=== PATIENT | female | born 1940 | race Caucasian/White ===

== ENCOUNTER → 2016-05-17 | Outpatient (CLI) | payer MEDICARE, BC ==
[~2016-05-17] MED LIST: ATR20T PO; CALC-52 PO; CHOL2000 PO; FEXO-104 PO; FLT05NA16 NSEACH; IBAN150T5 PO; NITR100C PO; PREMARIN; QVAR IH; TELM1TAB2 PO; UBID200C PO; VIT1CAPS29 PO; [UNRECOGNIZED DRUG - CODE] PO; [UNRECOGNIZED DRUG - OTHER]
--- NOTE | 2016-05-17 18:36 | Diagnostic Imaging Report ---
Bilateral diagnostic mammogram. INDICATION: Itching and tenderness in the outer aspect of the left breast. COMPARISON: 06/02/2015 The current study was also evaluated with a Computer Aided Detection (CAD) system. FINDINGS: There are scattered fibroglandular densities bilaterally with no significant change. No developing mass, architectural distortion or suspicious cluster of calcification. IMPRESSION: No mammographic evidence of malignancy. Ultrasound evaluation pending. ACR BI-RADS Category 0: Incomplete. (Needs additional imaging evaluation). Result letter will be mailed to the patient. Note: At least 10% of breast cancer is not imaged by mammography. Dictated by: Dictated on workstation # [id number]
--- NOTE | 2016-05-17 19:02 | Diagnostic Imaging Report ---
EXAMINATION: Left breast ultrasound. INDICATION: Lateral left breast tenderness and itching. FINDINGS: Areas of symptoms were scanned around the lateral aspect of the left breast with no underlying abnormality seen. IMPRESSION: Negative study. Clinical followup of patient's symptoms recommended. ACR BI-RADS Category 1: Negative. Dictated by: Dictated on workstation # [id number]
== END ==
LOC: RAD 08:31
PROVIDERS: ATTEND Nurse Practitioner Family
DX: N64.4 Mastodynia (principal)
CPT/HCPCS: 76642; 77066

== ENCOUNTER → 2016-08-22 | Outpatient (CLI) | payer MEDICARE, BC ==
--- NOTE | 2016-08-22 09:34 | Diagnostic Imaging Report ---
Examination: DEXA scan. Indication: osteopenia Technique: Bone mineral density estimated based on dual energy radiography over the lumbar spine and femoral necks, was performed. Findings: The lumbar spine T-score is -2.4. This is 7% decreased density measurements compared to 05/26/14. T-score over the right femoral neck is -0.3 and on the left is -0.7. This is 0.8% decreased density compared to 05/26/16. IMPRESSION: Worsening osteopenia. Dictated by: Dictated on workstation # [id number]
== END ==
LOC: RAD 08:45
PROVIDERS: ATTEND Nurse Practitioner Family
DX: M85.89 Other specified disorders of bone density and structure, multiple sites (principal)
CPT/HCPCS: 77080

== ENCOUNTER → 2017-01-13 | Outpatient (CLI) | payer MEDICARE, BC ==
--- NOTE | 2017-01-13 09:39 | Diagnostic Imaging Report ---
3 views of the left shoulder. INDICATION: Left shoulder pain. FINDINGS: There is no fracture, dislocation, or radiopaque foreign body. The acromioclavicular joint demonstrate joint narrowing and subchondral sclerosis compatible with osteoarthritis with small inferior osteophytes. Minimal osteophyte formation along the glenohumeral joint is seen. IMPRESSION: Degenerative changes. No fracture seen. Dictated by: Dictated on workstation # [id number]
--- NOTE | 2017-01-13 09:40 | Diagnostic Imaging Report ---
3 views of the cervical spine. INDICATION: Neck pain. FINDINGS: There is minimal anterior translation of C6 over C7. Otherwise there is satisfactory alignment of the posterior spinal line. There is a prominent lordotic curvature in the cervical spine. The vertebral body heights are preserved. Disc heights are also preserved. No significant posterior osteophyte formation is seen. There is satisfactory alignment of the lateral masses of C1 and C2. Sclerotic degenerative changes of the facet joints seen. IMPRESSION: Prominent lordotic curvature of the cervical spine. Facet degenerative changes. Dictated by: Dictated on workstation # [id number]
== END ==
LOC: RAD 09:07
PROVIDERS: ATTEND Nurse Practitioner Family
DX: M47.812 Spondylosis without myelopathy or radiculopathy, cervical region (principal); M19.012 Primary osteoarthritis, left shoulder
CPT/HCPCS: 72040; 73030

== ENCOUNTER → 2017-06-27 | Outpatient (CLI) | payer MEDICARE ==
--- NOTE | 2017-06-27 18:02 | Diagnostic Imaging Report ---
Digital mammogram bilateral screening. This study was compared to the prior exams of 05/17/2016, 06/02/2015, and 05/26/2014. At this time, there are no current complaints. The current study was also evaluated with a Computer Aided Detection (CAD) system. FINDINGS: The fibroglandular tissue in both breasts is heterogeneously dense. This does limit the sensitivity of this exam. Overall, there does not appear to have been any significant change when compared to the prior study. No primary or secondary sign of malignancy is noted. IMPRESSION: There is no radiographic evidence for malignancy. ACR BI-RADS Category 1: Negative. Result letter will be mailed to the patient. Note: At least 10% of breast cancer is not imaged by mammography. Dictated by: Dictated on workstation # [id number]
== END ==
LOC: RAD 09:46
PROVIDERS: ATTEND Nurse Practitioner Family
DX: Z12.31 Encounter for screening mammogram for malignant neoplasm of breast (principal)
CPT/HCPCS: 77067

== ENCOUNTER 2017-11-18 05:47 | Outpatient (CLI) | payer MEDICARE ==
[~2017-11-18] VITALS: Ht 168.9 cm; Wt 77.1 kg
[2017-11-18] MEDS ORDERED: FEXO-46 PO (13:41)
[2017-11-18] MEDS ORDERED: ATOR20TA66 PO (13:41)
[2017-11-18] MEDS ORDERED: IBAN150T8 PO (13:41)
[2017-11-18] MEDS ORDERED: CALC-822 PO (13:42)
[2017-11-18] MEDS ORDERED: GABA-486 PO (13:42)
[2017-11-18] MEDS ORDERED: FLT11013 IH (13:42)
[2017-11-18] MEDS ORDERED: CYAN250010 PO (13:42)
[2017-11-18] MEDS ORDERED: TELM40TA3 PO (13:42)
[2017-11-18] MEDS ORDERED: NITR50CA4 PO (13:42)
[2017-11-18] MEDS ORDERED: FLUT9.9S NS (13:42)
== END 2017-11-18 13:50 | disposition home or self-care (01) ==
LOC: PREOP 05:47
PROVIDERS: ATTEND Specialist
DX: Z01.818 Encounter for other preprocedural examination (principal)

== ENCOUNTER 2017-11-21 08:47 | Day surgery (SDC) | payer MEDICARE, BC ==
[~2017-11-21] VITALS: Ht 168.9 cm; Wt 77.1 kg
[~2017-11-21 08:47] MED LIST changes: +ATOR20TA66 PO; +CALC-822 PO; +CYAN250010 PO; +FEXO-46 PO; +FLT11013 IH; +FLUT9.9S NS; +GABA-486 PO; +IBAN150T8 PO; +NITR50CA4 PO; +TELM40TA3 PO
[2017-11-21 08:55] VITALS: BP 177/78
[2017-11-21] MEDS: TETRACAINE 0.5% OPHTH SOLN 4 ML BTL (SINGLE DOSE ONLY) OU PRN ×4 (09:14→09:23)
[2017-11-21] MEDS ORDERED: TIMOLOL MALEATE 0.5% 5 ML (TIMOPTIC) BTL OU PRN (09:15)
[2017-11-21] MEDS ORDERED: LIDOCAINE PF 1% 2 ML AMP IR PRN (09:15)
[2017-11-21] MEDS ORDERED: VANCOMYCIN/BSS (COMPOUNDED) 10 MG/ML SYR OP ONE (09:15)
[2017-11-21] MEDS ORDERED: EPINEPHrine INJECTION 1 MG/ML AMP INJ ONE (09:15)
[2017-11-21] MEDS ORDERED: POVIDONE (BETADINE) OPHTH SOLN 5% 30 ML OP ONE (09:15)
[2017-11-21] MEDS: CYCLOPENTOLATE 1% (CYCLOGYL) 2 ML DROPS OP SCH ×3 (09:17→09:23)
[2017-11-21] MEDS: PHENYLEPHRINE 10% OPHTH (NEO-SYN) 5 ML BTL OU SCH ×3 (09:17→09:23)
[2017-11-21] MEDS ORDERED: MIDAZOLAM 2 MG/2 ML (VERSED) VIAL ONE (09:52)
--- NOTE | 2017-11-21 10:02 | Ophthalmologist Pre-Op Note ---
Pre-Operative Progress Note H&P Reviewed The H&P was reviewed, patient examined and no changes noted. Date H&P Reviewed: Nov 21, 2017 Time H&P Reviewed: 10:02 Pre-Op Dx Cataract, Right Eye YVES SANDERS MD Nov 21, 2017 10:02
--- NOTE | 2017-11-21 10:26 | Ophthalmology Operative Report ---
Cataract removal/placement IOL PREOPERATIVE DIAGNOSIS: Cataract Right Eye POSTOPERATIVE DIAGNOSIS: Cataract Right Eye PROCEDURE: Cataract removal and placement of posterior chamber implant, right eye SURGEON: Modesto Sanders ANESTHESIA: Topical with sedation COMPLICATIONS: None ESTIMATED BLOOD LOSS: Minimal DESCRIPTION OF PROCEDURE: After proper informed consent was obtained, the patient, a 76 female, was taken to the Operating Room and the right eye was anesthetized with tetracaine. The right eye was then prepped and draped in the usual manner. A wire lid speculum was placed. A paracentesis was made at the left hand position. Preservative free lidocaine was injected into the anterior chamber followed by viscoelastic. A clear corneal incision was made in the temporal position. A capsulorrhexis was preformed and the central nuclear and cortical material were removed. The posterior capsule was polished and Saad 21.5 SN6CWS IOL was placed into the capsular bag. The residual viscoelastic was aspirated and balanced saline solution was injected into the anterior chamber. Vancomycin was injected into the anterior chamber. The wound was checked and found to be water tight. The patient tolerated the procedure well without complications. MODESTO SANDERS MD Nov 21, 2017 10:26
[2017-11-21 10:40] VITALS: BP 163/63
--- NOTE | 2017-11-21 12:53 | Anesthesia-General Post-Op ---
MAC Patient Condition Mental Status/LOC: Same as Preop Cardiovascular: Satisfactory Nausea/Vomiting: Absent Respiratory: Satisfactory Pain: Controlled Complications: Absent Post Op Complications Complications None Follow Up Care/Instructions Patient Instructions None needed. Anesthesiology Discharge Order Discharge Order Patient is doing well, no complaints, stable vital signs, no apparent adverse anesthesia problems. No complications reported per nursing. RANJAN BUTCHER CRNA Nov 21, 2017 12:53
== END 2017-11-21 10:40 | disposition home or self-care (01) ==
LOC: SDC 08:47
PROVIDERS: ATTEND Specialist
DX: H26.9 Unspecified cataract (principal); I10 Essential (primary) hypertension; J44.9 Chronic obstructive pulmonary disease, unspecified

== ENCOUNTER → 2018-05-14 | Outpatient (CLI) | payer MEDICARE ==
[~2018-05-14] MED LIST changes: +IOHEXOL 350 MG/ML 150 ML (OMNIPAQUE 350) VIAL IV ONE; +NS 100 ML (IVPB) BAG IV ONE; +RECEIVED CONTRAST (Hold Metformin) IV SCH
--- NOTE | 2018-05-14 12:25 | Diagnostic Imaging Report ---
PROCEDURE: CT angiography of the chest with contrast. TECHNIQUE: Multiple contiguous axial images were obtained through the chest after uneventful bolus administration of intravenous contrast. 2D reconstructed CTA MIP acquisitions were also performed. DATE: May 14, 2018. COMPARISON: None. INDICATION: 77-year-old female with shortness of breath and positive d-dimer. Evaluation for pulmonary embolus. FINDINGS: There is no identified pulmonary nodule or lung mass. There is mild dependent atelectasis in the left lower lobe and right lower lobe. There is no additional focal airspace consolidation. There is no pneumothorax. There is no pleural effusion. The central airways are patent. There is no identified pulmonary embolus. The main pulmonary artery is normal in caliber. The heart is not enlarged. There is no pericardial effusion. There is a calcified left hilar lymph node likely relating to sequela of prior granulomatous disease. There is no identified abnormally enlarged mediastinal, hilar, or axillary lymph node which meets CT size criteria for adenopathy. There is a low-attenuation nodule in the inferior aspect of the right lobe of the thyroid measuring 11 mm in size. 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 There is incidental note of direct origin of the left vertebral artery off the aortic arch. Unremarkable appearance of the imaged portions of the upper abdomen. There are multilevel degenerative changes of the spine. There is no identified acute bony abnormality. IMPRESSION: CT CHEST. 1. No identified pulmonary embolus or other acute cardiopulmonary abnormality. Dictated by: Dictated on workstation # [id number]
== END ==
LOC: RAD 11:06
PROVIDERS: ATTEND Nurse Practitioner Family
DX: R06.02 Shortness of breath (principal); R79.1 Abnormal coagulation profile
CPT/HCPCS: 71275

== ENCOUNTER 2018-06-03 12:51 | Outpatient (RCR) | payer MEDICARE ==
[2018-05-27] MEDS: FERRIC CARBOXYMALTOSE INJ 750 MG in NS (IVPB) 250 ML IV SCH (13:25)
[2018-05-27 14:15] VITALS: BP 152/63
[~2018-06-03] VITALS: Ht 168.9 cm; Wt 77.1 kg
[2018-06-03 12:50] VITALS: BP 176/67
[~2018-06-03 12:51] MED LIST changes: -IOHEXOL 350 MG/ML 150 ML (OMNIPAQUE 350) VIAL IV ONE; -NS 100 ML (IVPB) BAG IV ONE; -RECEIVED CONTRAST (Hold Metformin) IV SCH
[2018-06-03] MEDS: FERRIC CARBOXYMALTOSE INJ 750 MG in NS (IVPB) 250 ML IV SCH (13:05)
== END 2018-06-03 13:30 | disposition home or self-care (01) ==
LOC: SDC 12:51
PROVIDERS: ATTEND Nurse Practitioner Family
DX: D50.9 Iron deficiency anemia, unspecified (principal)
CPT/HCPCS: 96365

== ENCOUNTER → 2018-06-29 | Outpatient (CLI) | payer MEDICARE ==
--- NOTE | 2018-06-29 12:25 | Diagnostic Imaging Report ---
INDICATION: Routine screening. COMPARISON: 06/27/2017 and 05/17/2016. TECHNIQUE: 2D and 3D bilateral screening mammography was performed with CAD. FINDINGS: Scattered fibroglandular densities are identified bilaterally. The parenchymal pattern is stable. No dominant mass or malignant appearing microcalcifications are seen. The axillae are unremarkable. IMPRESSION: No mammographic features suspicious for malignancy are identified. ACR BI-RADS Category 1: Negative. Result letter will be mailed to the patient. Note: At least 10% of breast cancer is not imaged by mammography. Dictated by: Dictated on workstation # [id number]
== END ==
LOC: RAD 10:56
PROVIDERS: ATTEND Nurse Practitioner Family
DX: Z12.31 Encounter for screening mammogram for malignant neoplasm of breast (principal)
CPT/HCPCS: 77067

== ENCOUNTER → 2019-11-03 | Outpatient (CLI) | payer MEDICARE ==
[~2019-11-03] MED LIST changes: +IBAN150T21 PO; -IBAN150T8 PO; -TELM40TA3 PO; +TELM40TA6 PO
--- NOTE | 2019-11-03 11:51 | Diagnostic Imaging Report ---
INDICATION: Routine screening. Comparison is made with prior mammogram 06/29/2018 and 06/27/2017. 2-D and 3-D bilateral screening mammography was performed with CAD. Scattered fibroglandular densities are identified bilaterally. A small nodule in the central right breast just above the nipple line on the MLO view appears stable. No new mass or malignant-appearing microcalcifications are seen. There are benign parenchymal and vascular calcifications. Axillae are unremarkable. IMPRESSION: BI-RADS Category 2 No mammographic features suspicious for malignancy are identified. ACR BI-RADS Category 2: Benign findings. Result letter will be mailed to the patient. Note: At least 10% of breast cancer is not imaged by mammography. Dictated by: Dictated on workstation # [id number]
== END ==
LOC: RAD 09:44
PROVIDERS: ATTEND Family Medicine
DX: Z12.31 Encounter for screening mammogram for malignant neoplasm of breast (principal)
CPT/HCPCS: 77063; 77067

== ENCOUNTER → 2019-11-26 | Outpatient (CLI) | payer MEDICARE ==
--- NOTE | 2019-11-26 10:36 | Diagnostic Imaging Report ---
PROCEDURE: CT abdomen and pelvis without contrast. TECHNIQUE: Multiple contiguous axial images were obtained through the abdomen and pelvis without the use of intravenous contrast. Auto Exposure Controls were utilized during the CT exam to meet ALARA standards for radiation dose reduction. INDICATION: Recurrent urinary tract infections. Bladder infections. COMPARISON: 05/14/2018. 10/18/2013. FINDINGS: The heart is unremarkable. The included lung bases are clear. Calcified granulomas are seen in the left lung base. No evidence of renal calculi or hydronephrosis. No perinephric fat stranding is seen. The urinary bladder is mildly distended. No bladder wall thickening is seen. No bladder calculi. The liver, spleen, pancreas, and adrenal glands have a normal appearance. There is no pathologically enlarged mesenteric or retroperitoneal adenopathy. The bowel loops are nondilated. Scattered diverticuli are present in the sigmoid colon without evidence of acute diverticulitis. The appendix is visualized in the right lower quadrant. There is no free fluid or free air. The osseous structures are age-appropriate. There is no free air, loculated collection, or adenopathy in the pelvis. IMPRESSION: 1. No renal calculi or hydronephrosis. No bladder calculi. No bladder wall thickening. No CT evidence of cystitis or pyelonephritis. 2. Scattered diverticuli without evidence of acute diverticulitis. Dictated by: Dictated on workstation # [id number]
== END ==
LOC: RAD 09:49
PROVIDERS: ATTEND Urology
DX: K57.30 Diverticulosis of large intestine without perforation or abscess without bleeding (principal); Z87.442 Personal history of urinary calculi
CPT/HCPCS: 74176

== ENCOUNTER → 2020-11-07 | Outpatient (CLI) | payer MEDICARE ==
--- NOTE | 2020-11-07 16:43 | Diagnostic Imaging Report ---
INDICATION: Routine screening. COMPARISON is made with prior mammograms from 11/03/2019 and 06/29/2018. 2-D and 3-D bilateral screening mammography was performed with CAD. Both breasts are heterogeneously dense, limiting the sensitivity of mammography. Circumscribed nodule in the retroareolar right breast appears stable. No new mass or malignant-appearing microcalcifications are seen. Axillae are unremarkable. IMPRESSION: BI-RADS Category 2 No mammographic features suspicious for malignancy are identified. ACR BI-RADS Category 2: Benign findings. Result letter will be mailed to the patient. Note: At least 10% of breast cancer is not imaged by mammography. Dictated by: Dictated on workstation # [id number]
== END ==
LOC: RAD 14:15
PROVIDERS: ATTEND Nurse Practitioner Family
DX: Z12.31 Encounter for screening mammogram for malignant neoplasm of breast (principal)
CPT/HCPCS: 77063; 77067

== ENCOUNTER → 2021-02-13 | Outpatient (CLI) | payer MEDICARE | LOC: CARD 09:47 | PROVIDERS: ATTEND Family Medicine | DX: R00.2 Palpitations (principal) | CPT/HCPCS: 93005 ==

== ENCOUNTER 2021-02-26 09:16 | Emergency (ER) | payer MEDICARE ==
[~2021-02-26] VITALS: Ht 170 cm; Wt 75.0 kg
[2021-02-26 09:30] VITALS: BP 210/97
--- NOTE | 2021-02-26 09:49 | ED General ---
General Chief Complaint: Cardiac/General Problems Stated Complaint: HBP Source of Information: Patient Exam Limitations: No Limitations History of Present Illness Date Seen by Provider: Feb 26, 2021 Time Seen by Provider: 09:38 Initial Comments Patient is an 80-year-old female with a history of hypertension who presents to the emergency department with a chief complaint of palpitations or extra little heartbeats that have been occurring more frequently since her Covid booster at the end of January. Patient states that since her booster she would get them every once in a while but this morning they were persistent and seem to be more frequent. She denies any chest pain or tightness. She denies any shortness of breath or nausea. No sweating. No abdominal pain or swelling in her lower extremities. Patient self caths twice a day and is followed by urologist in [facility]. She states that she has been told that her urine will always "look infected" on urinalysis secondary to her bladder does not empty appropriately. She denies any recent diarrhea, black or bloody stools. She denies any change in her medications or missed or skipped doses. She does not have a headache or any complaints of weakness. She states she just has discomfort when she feels these "extra beats". She takes telmisartan 80 mg daily. Noted that her blood pressure systolic is 235 at the time of my evaluation. All other review of systems reviewed and negative except as stated. Timing/Duration: 1 Week Severity: Moderate Associated Systoms: Other (feels "tired") Allergies and Home Medications Allergies Coded Allergies: Cephalexin Monohydrate (Unverified Allergy, Severe, SWELLING, 11/18/17) Penicillins (Unverified Allergy, Severe, EDEMA, 11/18/17) codeine (Unverified Allergy, Severe, SWELLING, 11/18/17) erythromycin base (Unverified Allergy, Severe, SWELLING, 11/18/17) tiotropium bromide (Unverified Allergy, Severe, SWELLING, 11/18/17) tramadol (Verified Allergy, Mild, RASH, 11/18/17) azithromycin (Unverified Allergy, Unknown, 11/18/17) Sulfa (Sulfonamide Antibiotics) (Unverified Adverse Reaction, Mild, TIRED, 11/18/17) Patient Home Medication List Home Medication List Reviewed: Yes Atorvastatin Calcium (Atorvastatin Calcium) 20 Mg Tablet, 20 MG PO DAILY, (Reported) Entered as Reported by: LUPILLO BRANNON on 11/18/17 134 Calcium Citrate/Vitamin D3 (Calcium Citrate - Vit D Caplet) 1 Each Tablet, 2 EACH PO DAILY, (Reported) Entered as Reported by: LUPILLO BRANNON on 11/18/17 134 Cyanocobalamin (Vitamin B-12) (Vitamin B12) 2,500 Mcg Tablet, 2,500 MCG PO DAILY, (Reported) Entered as Reported by: LUPILLO BRANNON on 11/18/17 134 Fexofenadine HCl (Fexofenadine HCl) 180 Mg Tablet, 180 MG PO DAILY, (Reported) Entered as Reported by: LUPILLO BRANNON on 11/18/17 134 Fluticasone Propionate (Flonase Allergy Relief) 9.9 Ml [place].susp, 1 SPRAY NS DAILY, (Reported) Entered as Reported by: LUPILLO BRANNON on 11/18/17 134 Fluticasone Propionate (Flovent Hfa 110 mcg) 1 Ea Aero, 2 EA IH DAILY, (Reported) Entered as Reported by: LUPILLO BRANNON on 11/18/17 134 Gabapentin (Gabapentin) 100 Mg Capsule, 100 MG PO DAILY, (Reported) Entered as Reported by: LUPILLO BRANNON on 11/18/17 134 Hydralazine HCl (Hydralazine HCl) 10 Mg Tablet, 10 MG PO TID Prescribed by: LIDA LYNN on 02/26/21 1101 Ibandronate Sodium (Ibandronate Sodium) 150 Mg Tablet, 150 MG PO MONTHLY, (Reported) Entered as Reported by: LUPILLO BRANNON on 11/18/17 134 Nitrofurantoin Macrocrystal (Macrodantin) 50 Mg Capsule, 50 MG PO Q OTHER DAY, (Reported) Entered as Reported by: LUPILLO BRANNON on 11/18/17 134 Telmisartan (Telmisartan) 40 Mg Tablet, 40 MG PO DAILY, (Reported) Entered as Reported by: LUPILLO BRANNON on 11/18/17 134 Review of Systems Review of Systems Constitutional: see HPI EENTM: no symptoms reported Respiratory: no symptoms reported Cardiovascular: palpitations Gastrointestinal: no symptoms reported Genitourinary: no symptoms reported Musculoskeletal: no symptoms reported Skin: no symptoms reported Psychiatric/Neurological: No Symptoms Reported All Other Systems Reviewed Negative Unless Noted: Yes Past Yhlyard-Yzpgot-Bxcqnf Hx Patient Social History Tobacco Use?: No Use of E-Cig and/or Vaping dev: No Substance use?: No Alcohol Use?: No Immunizations Up To Date Influenza Vaccine Up-to-Date: No; Not Current First/Initial COVID19 Vaccinat: 05/11/20 Second COVID19 Vaccination [place]: 06/08/20 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 0.0oz. [id number]; BMI Method: General Appearance: No Apparent Distress, WD/WN Eyes: Bilateral Eye Normal Inspection, Bilateral Eye PERRL, Bilateral Eye EOMI Neck: Normal Inspection Respiratory: Lungs Clear, Normal Breath Sounds, No Accessory Muscle Use, No Respiratory Distress Cardiovascular: Regular Rate, Rhythm, Extra Beats, Other (brisk capillary refill) Gastrointestinal: Normal Bowel Sounds, Non Tender, Soft Extremity: Normal Capillary Refill, Normal Inspection, Normal Range of Motion, Non Tender Neurologic/Psychiatric: Alert, Oriented x3, No Motor/Sensory Deficits, Normal Mood/Affect Skin: Normal Color, Warm/Dry Progress/Results/Core Measures Suspected Sepsis SIRS Temperature: Pulse: Respiratory Rate: Laboratory Tests 02/26/21 09:35: White Blood Count 8.3 Blood Pressure / Mean: Laboratory Tests 02/26/21 09:35: Creatinine 0.98, Platelet Count 201 Results/Orders Lab Results Laboratory Tests Test 02/26/21 09:35 Range/Units White Blood Count 8.3 4.3-11.0 10^3/uL Red Blood Count 3.82 3.80-5.11 10^6/uL Hemoglobin 12.4 11.5-16.0 g/dL Hematocrit 39 35-52 % Mean Corpuscular Volume 101 H 80-99 fL Mean Corpuscular Hemoglobin 33 25-34 pg Mean Corpuscular Hemoglobin Concent 32 32-36 g/dL Red Cell Distribution Width 13.0 10.0-14.5 % Platelet Count 201 130-400 10^3/uL Mean Platelet Volume 10.6 9.0-12.2 fL Immature Granulocyte % (Auto) 0 % Neutrophils (%) (Auto) 63 42-75 % Lymphocytes (%) (Auto) 28 12-44 % Monocytes (%) (Auto) 8 0-12 % Eosinophils (%) (Auto) 1 0-10 % Basophils (%) (Auto) 0 0-10 % Neutrophils # (Auto) 5.2 1.8-7.8 10^3/uL Lymphocytes # (Auto) 2.3 1.0-4.0 10^3/uL Monocytes # (Auto) 0.7 0.0-1.0 10^3/uL Eosinophils # (Auto) 0.1 0.0-0.3 10^3/uL Basophils # (Auto) 0.0 0.0-0.1 10^3/uL Immature Granulocyte # (Auto) 0.0 0.0-0.1 10^3/uL Sodium Level 139 135-145 MMOL/L Potassium Level 4.2 3.6-5.0 MMOL/L Chloride Level 102 98-107 MMOL/L Carbon Dioxide Level 25 21-32 MMOL/L Anion Gap 12 5-14 MMOL/L Blood Urea Nitrogen 21 H 7-18 MG/DL Creatinine 0.98 0.60-1.30 MG/DL Estimat Glomerular Filtration Rate 54 BUN/Creatinine Ratio 21 Glucose Level 102 70-105 MG/DL Calcium Level 9.6 8.5-10.1 MG/DL Magnesium Level 2.1 1.6-2.4 MG/DL My Orders Orders - LIDA LYNN MD Ekg Tracing (02/26/21 09:57) Ed Iv/Invasive Line Start (02/26/21 09:57) Cbc With Automated Diff (02/26/21 09:57) Basic Metabolic Panel (02/26/21 09:57) Magnesium (02/26/21 09:57) Chest 1 View, Ap/Pa Only (02/26/21 09:57) Hydralazine Injection (Apresoline Inject (02/26/21 10:15) Medications Given in ED Current Medications Medications Dose Ordered Sig/Kayleen Route Start Time Stop Time Status Last Admin Dose Admin Hydralazine HCl 10 mg ONCE ONCE IV 02/26/21 10:15 02/26/21 10:16 DC 02/26/21 10:13 10 MG Vital Signs/I&O 02/26/21 02/26/21 09:30 10:27 Temp 36.4 Pulse 66 Resp 18 B/P (MAP) 210/97 (134) 212/85 Pulse Ox 99 Capillary Refill : Progress Note : Time: 10:58 Progress Note BP down to 163/53. Patient feels a little "shakey" because she hasn't eaten today. Offered some timbo crackers and water. Discussed plan of care with the patient. Starting her on the hydralazine and follow up with Dr Beyer. She is agreeable. Labs, imaging reviewed. All WNL. Will send her home with the hydralazine 10mg PO TID. Return precautions discussed. 1158 Patient got up to go to the bathroom at discharge and became very symptommatic of low blood pressure, dizzy and light headed. Brought back to the room and BP checked - 106 systolic. Likely just over corrected with the IV hydralazine. No complaints of chest pain, shortness of breath or nausea. SHe has not eaten at all today. We will continue to watch her, and feed her. Im going to advise her NOT to fill the hydralazine PO and just hold off until she follows up with either Dr Beyer or Dr Gamboa. She is to keep a close eye on her BP. 1215 Final blood pressure before dismissal from the ED was 136 Systolic. HR 70. we had the patient stand and she was asymptommatic. SHe was ready for dismissal home and to go get something to eat. Advised precaution with position changes. ECG Initial ECG Impression Date: Feb 26, 2021 Initial ECG Impression Time: 09:35 Initial ECG Rate: 65 Initial ECG Rhythm: Normal Sinus Initial ECG Intervals: Normal Initial ECG Impression: Normal Departure Communication (PCP) [address] Gamboa, she would like the patient referred to Dr. Beyer. She advises watching the patient's blood pressure to see if the hydralazine I have given works well for her and then she would like me to start her on 10 mg by mouth 3 times daily. She will also follow her up in clinic. Impression Primary Impression: PVC's (premature ventricular contractions) Additional Impression: High blood pressure Qualified Codes: I10 - Essential (primary) hypertension Disposition: 01 HOME, SELF-CARE Condition: Improved Departure-Patient Inst. Decision time for Depature: 10:40 Referrals: MARCUS GAMBOA MD (PCP) Primary Care Physician EKATERINA BEYER MD Patient Instructions: Ventricular Premature Beats Add. Discharge Instructions: Dr. Gamboa would like to start you on a new medication, hydralazine. You have had a dose of that 3 or IV today in the emergency department. She would like you to start taking 10 mg by mouth 3 times daily. She would also like you to follow-up with Dr. Beyer, the side panel padder who is on- call today. She would like you to see this provider and not any of the other ones. Please call his office to schedule a follow-up appointment. Please also call Dr Gamboa's office for a follow up appointment. Please come back to the emergency department if you feel persistent chest discomfort especially with shortness of breath, nausea, sweating or any other emergent concerning symptoms. Please continue your other blood pressure medication as well. Scripts Hydralazine HCl (Hydralazine HCl) 10 Mg Tablet 10 MG PO TID, #30 TAB Prov: LIDA LYNN MD 02/26/21 Copy Copies To 1: MARCUS GAMBOA MD, KATHRYN M MD Feb 26, 2021 09:49
[2021-02-26 10:07] LABS: BASOPHILS % (AUTO) 0 % (0-10); EOSINOPHILS # (AUTO) 0.1 10^3/uL (0.0-0.3); EOSINOPHILS % (AUTO) 1 % (0-10); HEMATOCRIT 39 % (35-52); HEMOGLOBIN 12.4 g/dL (11.5-16.0); LYMPHOCYTES # (AUTO) 2.3 10^3/uL (1.0-4.0); LYMPHOCYTES % (AUTO) 28 % (12-44); MEAN CORPUSCULAR HEMOGLOBIN 33 pg (25-34); MEAN CORPUSCULAR HGB CONC 32 g/dL (32-36); MEAN CORPUSCULAR VOLUME 101 fL (80-99); MEAN PLATELET VOLUME 10.6 fL (9.0-12.2); MONOCYTES # (AUTO) 0.7 10^3/uL (0.0-1.0); MONOCYTES % (AUTO) 8 % (0-12); NEUTROPHILS # (AUTO) 5.2 10^3/uL (1.8-7.8); NEUTROPHILS % (AUTO) 63 % (42-75); PLATELET COUNT 201 10^3/uL (130-400); WHITE BLOOD COUNT 8.3 10^3/uL (4.3-11.0)
[2021-02-26 10:11] LABS: POTASSIUM 4.2 MMOL/L (3.6-5.0)
[2021-02-26 10:12] LABS: CALCIUM 9.6 MG/DL (8.5-10.1)
[2021-02-26] MEDS ORDERED: hydrALAZINE (APESOLINE) 20 MG/ML VIAL IV ONE (10:15)
[2021-02-26 10:16] LABS: CREATININE SERUM 0.98 MG/DL (0.60-1.30)
--- NOTE | 2021-02-26 10:17 | Diagnostic Imaging Report ---
EXAMINATION: Chest, 1 view. HISTORY: Palpitations. COMPARISON: None available. FINDINGS: The heart size and pulmonary vasculature are normal. The lungs are clear without consolidation, pleural effusion, or pneumothorax. Mild bibasilar atelectasis. The osseous structures are intact. IMPRESSION: No acute radiographic abnormality in the chest. Dictated by: Dictated on workstation # [id number]
[2021-02-26 10:18] LABS: MAGNESIUM 2.1 MG/DL (1.6-2.4)
[2021-02-26] MEDS ORDERED: HYDR-3922 PO (11:01)
== END 2021-02-26 11:10 | disposition home or self-care (01) ==
LOC: EDUNIT# 09:16 → ER 09:18
DX: I49.3 Ventricular premature depolarization (principal); I10 Essential (primary) hypertension
CPT/HCPCS: 36415; 71045; 80048; 83735; 85025; 93005

== ENCOUNTER → 2021-03-15 | Outpatient (CLI) | payer MEDICARE ==
[~2021-03-15] MED LIST changes: +HYDR-3922 PO
== END ==
LOC: CARD 14:00
PROVIDERS: ATTEND Internal Medicine Cardiovascular Disease
DX: I34.0 Nonrheumatic mitral (valve) insufficiency (principal); I11.9 Hypertensive heart disease without heart failure; I49.9 Cardiac arrhythmia, unspecified
CPT/HCPCS: 93225; 93226; 93306

== ENCOUNTER 2021-04-11 10:52 | Outpatient (RCR) | payer MEDICARE | END 2021-04-13 | disposition home or self-care (01) | PROVIDERS: ATTEND Family Medicine | DX: N81.10 Cystocele, unspecified (principal); N81.6 Rectocele; I10 Essential (primary) hypertension ==

== ENCOUNTER → 2021-04-17 | Outpatient (CLI) | payer MEDICARE ==
--- NOTE | 2021-04-17 13:10 | Diagnostic Imaging Report ---
INDICATION: Postmenopausal. COMPARISON: 08/22/2016. FINDINGS: The bone mineral density of the spine, hips, and femoral necks was measured. FINDINGS: The total T score for the spine is -2.2. On the prior exam, the T score was -2.4. The total T score for the left hip is -0.7 and for the right hip -0.5. On the prior exam, the respective T scores were -0.7 and -0.3. The T score for the left femoral neck is -1.5 and for the right -1.1. On the prior study, the respective T scores were -1.5 and -0.9. AP Spine L1-L4: [BMD (g/cm2): 0.942] [T-Score: -2.2] [Z-Score: -0.7] [BMD Previous: 0.913] [BMD % Change: 3.2] LT Hip Neck: [BMD (g/cm2): 0.833] [T-Score: -1.5] [Z-Score: 0.5] LT Hip Total: [BMD (g/cm2):0.920] [T-Score:-0.7] [Z-Score: 1.1] [BMD Previous: 0.924] [BMD % Change: -0.4] RT Hip Neck: [BMD (g/cm2):0.886] [T-Score:-1.1] [Z-Score:0.9] RT Hip Total: [BMD (g/cm2):0.950] [T-score:-0.5] [Z-Score:1.4] [BMD Previous:0.973] [BMD % Change:-2.4] *Indicates significant change from prior examination based on 95% confidence level. World Health Organization criteria for BMD interpretation classify patients as Normal (T-score at or above -1.0), Osteopenic (T-score between -1.0 and -2.5) or Osteoporotic (T-score at or below -2.5). LIMITATIONS AND MODIFICATION: None. FRACTURE RISK (FRAX SCORE): The ten year probability of (%): Major Osteoporotic Fracture: [NA] Hip Fracture: [NA] IMPRESSION: 1. There has been a slight increase in the bone mineral density of the spine. The T score value, however, still indicates severe osteopenia. 2. There has also been a slight increase in the bone mineral density of the right hip and the right femoral neck and these values are within normal limits. 3. The T-scores for the left hip and left femoral neck have not changed. 4. See below National Osteoporosis Foundation guidelines on when to potentially initiate pharmacologic therapy. Based on the National Osteoporosis Foundation Guidelines, pharmacologic treatment should be initiated in any of the following, unless clinical conditions suggest otherwise: * Any patient with prior fragility fracture of the hip or vertebrae. A spine fracture indicates 5X risk for subsequent spine fracture and 2X risk for subsequent hip fracture. * Osteoporosis (T-score <-2.5). * Postmenopausal women and men age 50 and older with low bone mass/osteopenia (T-score between -1.0 and -2.5) by DXA and 10-year major osteoporotic fracture greater than 20% or a 10-year probability of hip fracture greater than 3%. These fracture risks are supplied above in the FRAX score, if applicable. * Clinician judgement and/or patient preferences may indicate treatment for people with 10-year fracture probabilities above or below these levels. Dictated by: Dictated on workstation # [id number]
== END ==
LOC: RAD 12:30
PROVIDERS: ATTEND Nurse Practitioner Family
DX: M85.80 Other specified disorders of bone density and structure, unspecified site (principal); Z78.0 Asymptomatic menopausal state
CPT/HCPCS: 77080

== ENCOUNTER → 2021-05-02 | Outpatient (CLI) | payer MEDICARE ==
[~2021-05-02] VITALS: Ht 167 cm; Wt 77.0 kg
[~2021-05-02] MED LIST changes: +CATHETER FLUSH 10 ML SYR IV PRN; +REGADENOSON 0.4 MG/5 ML SYR (LEXISCAN) IV ONE
[2021-05-02 09:39] VITALS: BP 209/96
--- NOTE | 2021-05-02 11:23 | Cardiology Stress Test Report ---
Stress Test Report Date of Procedure/Referring: Date of Procedure: May 02, 2021 PCP Ekaterina Beyer MD Admitting Physician Sherry Gamboa MD Indications: HTN Baseline Heart Rate: 60 Baseline Blood Pressure: Blood Pressure Systolic: 209 Blood Pressure Diastolic: 96 Baseline Vitals Vital Signs Date Time Temp Pulse Resp B/P (MAP) Pulse Ox O2 Delivery O2 Flow Rate FiO2 05/02/21 09:39 77 17 209/96 (133) 99 Room Air Baseline EKG: Baseline EKG: NSR Summary After explaining the procedure to the patient, she signed a consent and then brought to the stress nuclear laboratory. Patient received 0.4 mg Lexiscan for stress test, ECG, heart rate and blood pressure were monitored continuously. Resting and stress dose of radio tracer were injected, imaging was acquired and reviewed in short axis, horizontal long axis and vertical long axis views. TID: 0.78 SSS: 7 SDS: 6 EF: 55 1. Patient tolerated Lexiscan well 2. Breast attenuation with mild decrease uptake involving the mid to apical anterolateral wall with mild reversibility, probably secondary to breast attenuation. 3. Normal left ventricular size, EF 55% 4. Baseline hypertension persisted during test EKATERINA BEYER MD May 02, 2021 11:23
== END ==
LOC: CARD 08:30
PROVIDERS: ATTEND Internal Medicine Cardiovascular Disease
DX: I10 Essential (primary) hypertension (principal); I49.9 Cardiac arrhythmia, unspecified
CPT/HCPCS: 78452; 93017; A9502

== ENCOUNTER 2021-05-03 09:47 | Outpatient (RCR) | payer MEDICARE ==
[~2021-05-03 09:47] MED LIST changes: -CATHETER FLUSH 10 ML SYR IV PRN; -FLUT9.9S NS; +FLUT9.9S NSEACH; -REGADENOSON 0.4 MG/5 ML SYR (LEXISCAN) IV ONE
[2021-05-09] MEDS ORDERED: UBID100C17 PO (08:46)
[2021-05-09] MEDS ORDERED: NITR-65 PO (08:46)
[2021-05-09] MEDS ORDERED: CHOL-34 PO (08:46)
[2021-05-09] MEDS ORDERED: CRAN500T3 PO (08:46)
[2021-05-09] MEDS ORDERED: PANT40TA52 PO (08:46)
[2021-05-09] MEDS ORDERED: ASCO500T71 PO (08:46)
[2021-05-09] MEDS ORDERED: OMEG-35 PO (08:46)
[2021-05-09] MEDS ORDERED: MULT-1136 PO (08:46)
[2021-05-09] MEDS ORDERED: [UNRECOGNIZED DRUG - CODE] SL (08:46)
[2021-05-09] MEDS ORDERED: UQORA PO (08:46)
[2021-05-09] MEDS ORDERED: TELM80TA8 PO (08:46)
[2021-05-09] MEDS ORDERED: MTP25TSR PO (08:46)
== END 2021-05-14 | disposition home or self-care (01) ==
PROVIDERS: ATTEND Family Medicine
DX: N81.10 Cystocele, unspecified (principal); N81.6 Rectocele; I10 Essential (primary) hypertension

== ENCOUNTER 2021-05-09 10:00 | Day surgery (SDC) | payer MEDICARE ==
[2021-05-09] VITALS (10 sets, daily range): BP systolic 97–157; BP diastolic 42–80
[~2021-05-09] VITALS: Ht 170 cm; Wt 77.5 kg
[2021-05-09 08:21] LABS: BASOPHILS % (AUTO) 0 % (0-10); EOSINOPHILS # (AUTO) 0.1 10^3/uL (0.0-0.3); EOSINOPHILS % (AUTO) 1 % (0-10); HEMATOCRIT 40 % (35-52); LYMPHOCYTES # (AUTO) 2.5 10^3/uL (1.0-4.0); LYMPHOCYTES % (AUTO) 27 % (12-44); MEAN CORPUSCULAR HEMOGLOBIN 32 pg (25-34); MEAN CORPUSCULAR HGB CONC 33 g/dL (32-36); MEAN CORPUSCULAR VOLUME 99 fL (80-99); MEAN PLATELET VOLUME 10.4 fL (9.0-12.2); MONOCYTES # (AUTO) 0.9 10^3/uL (0.0-1.0); MONOCYTES % (AUTO) 10 % (0-12); NEUTROPHILS # (AUTO) 5.5 10^3/uL (1.8-7.8); NEUTROPHILS % (AUTO) 61 % (42-75); PLATELET COUNT 199 10^3/uL (130-400); WHITE BLOOD COUNT 9.1 10^3/uL (4.3-11.0)
[2021-05-09 08:34] LABS: INR 0.9 (0.8-1.4); PROTHROMBIN TIME PATIENT 12.7 SEC (12.2-14.7)
--- NOTE | 2021-05-09 08:36 | Diagnostic Imaging Report ---
INDICATION: Pre-heart catheterization. TIME OF EXAM: 8:14 AM Correlation is made with prior chest 02/26/2021. Heart size is stable. Lungs are clear. No infiltrates are detected. No effusion or pneumothorax is identified. IMPRESSION: No acute cardiopulmonary process is detected. Dictated by: Dictated on workstation # [id number]
[2021-05-09 08:40] LABS: BILIRUBIN,TOTAL 0.5 MG/DL (0.1-1.0); CALCIUM 9.6 MG/DL (8.5-10.1); CREATININE SERUM 1.38 MG/DL (0.60-1.30); POTASSIUM 4.3 MMOL/L (3.6-5.0); TOTAL PROTEIN 7.3 GM/DL (6.4-8.2)
[~2021-05-09 10:00] MED LIST changes: +ASCO500T71 PO; +CHOL-34 PO; +CRAN500T3 PO; +HEParin (CATH LAB) 2,000 ML IV ONE; +LIDOCAINE 1% INJ 20 ML VIAL ONE; +MTP25TSR PO; +MULT-1136 PO; +NITR-65 PO; +NS IV 1000 ML 1,000 ML IV SCH; +NS IV 1000 ML 1,000 ML ONE; +OMEG-35 PO; +PANT40TA52 PO; +TELM80TA8 PO; +UBID100C17 PO; +UQORA PO; +[UNRECOGNIZED DRUG - CODE] SL
[2021-05-09] MEDS ORDERED: VERAPAMIL 5 MG/2 ML (CALAN) VIAL IV ONE ×2 (10:07→10:39)
[2021-05-09] MEDS ORDERED: MIDAZOLAM 5 MG/5 ML (VERSED) VIAL ONE (10:07)
[2021-05-09] MEDS ORDERED: fentaNYL INJ 100 MCG/2 ML AMP ONE (10:08)
[2021-05-09] MEDS ORDERED: HEParin 1000 UNIT/ML (10ML VIAL) FOR BOLUS ONE (10:08)
[2021-05-09] MEDS ORDERED: NITRO DRIP 25000 MCG/D5W 250 ML IV ONE (10:08)
--- NOTE | 2021-05-09 10:15 | Conscious Sedation/ASA ---
Conscious Sedation Pre-Proced Time 10:15 ASA Score 3 For ASA 3 and 4: Consider anesthesia and medical clearance. Also, for patients with a history of failed moderate sedation consider anesthesia. Airway Lungs Heart ASA score ASA 1: a normal healthy patient ASA 2: a patient with a mild systemic disease (mid diabetes, controlled hypertension, obesity x ASA 3: a patient with a severe systemic disease that limits activity (angina, COPD, prior Myocardial infarction) ASA 4: a patient with an incapacitating disease that is a constant threat to life (CHF, renal failure) ASA 5: a moribund patient not expected to survive 24 hrs. (ruptured aneurysm) ASA 6: a declared brain- patient whose organs are being harvested. For emergent operations, add the letter E after the classification Mallampati Classification Grade 3 Sedation Plan Analgesia, Amnesia, Plan communicated to team members, Discussed options with patient/fam, Discussed risks with patient/fam The patient is an appropriate candidate to undergo the planned procedure, sedation, and anesthesia. The patient immediately re-assessed prior to indication. EKATERINA PATEL MD May 09, 2021 10:15
--- NOTE | 2021-05-09 10:49 | Discharge Inst-Post CATH ---
Discharge Inst-CATH/EP Problems Reviewed?: Yes Post Cardiac Cath/EP D/C Inst Follow Up/Plan Appointment with Dr. Beyer's office in 4 weeks <b>CARDIAC CATH/EP PROCEDURE DISCHARGE INSTRUCTIONS</b> ACTIVITY * Go Home directly and rest. * Limit activity of the leg (or wrist if it was used) for 7 days including aerobics, swimming, jogging, bicycling, etc. * Restrict stair-climbing for 7 days if possible, if not, climb up with your non-cath leg, then bring together on the same step. * Avoid lifting, pushing, pulling or excessive movement of the affected extremity for 7 days. * Customary sexual activity may be resumed after 2 days-use caution not to use a position that strains or causes pain to the affected extremity. * No driving for 24 hours. * NO SMOKING. * Avoid straining for bowel movements for 7 days. * Gentle walking on level ground is allowed. * Returning to work will depend on the type of procedure and the results. Your doctor will discuss this with you. CALL YOUR DOCTOR FOR ANY OF THE FOLLOWING: *If bleeding from the puncture site occurs- Apply gentle pressure to site with clean cloth and call your doctor or EMS. * If a knot or lump forms under the skin, increases in size, or causes pain. * If bruising appears to be worsening or moving further down your leg instead of disappearing. * Temperature above 101 F. CARE OF YOUR GROIN INCISION; * Bruising or purple discoloration of the skin near the puncture site is common. * You may shower only, no bathtub bathing for 5 days. Be careful to avoid slipping as your leg may feel stiff. * If a closure device was used on your femoral artery, please see the attached guide regarding care of the device and your leg. * Leave dressing on FOR 24 hours. CARE OF YOUR WRIST INCISION; * Bruising or purple discoloration of the skin near the puncture site is common. * You may shower. * DO NOT submerge wrist. * Leave dressing on FOR 24 hours. EKATERINA EBYER MD May 09, 2021 10:49
--- NOTE | 2021-05-09 10:54 | Cardiac Cath Report ---
Cardiac Cath Report Physician (s)/Job Training Specialist (s) Physician EKATERINA PATEL MD Pre-Procedure Diagnosis Pre-Procedure Diagnosis: Coronary artery disease Post-Procedure Note Procedure Start Date: May 09, 2021 Name of Procedure: Left heart catheterization Findings/Procedure Note PROCEDURE NOTE: 80-year-old lady with a history of hypertension, hyperlipidemia, chronic renal insufficiency, had an abnormal stress test, scheduled for cardiac catheterization possible PTCA. After explaining the procedure to the patient, all pros and cons were explained, all questions were answered. The patient signed the consent and then she was placed on the cardiac catheterization laboratory. Groin was prepped SL fashion local anesthesia was used. Sheath placed in the right radial artery, [place] catheter was advanced to the left ventricular cavity, pressure was measured, pullback LV to aorta was done. Patient had significant spasm in her brachial and radial artery she was very uncomfortable with any movement of the catheter. I was able to do subselective angiogram to the left coronary system then I ex changed the catheter over a long J-wire and gave her another dose of nitroglycerin and verapamil and her sheath, advanced 5 [place] [employer] right diagnostic catheter to the right coronary artery and angiogram was done At the end of the procedure the sheath was removed. Vascular band was used FINDINGS: Hemodynamics LV 144/12, end-diastolic pressure of 12 Aorta 143/68 mean of 94 ANATOMY: Left Main is free of obstructive disease Left Anterior Descending is slightly tortuous with mild disease nonobstructive disease Left Circumflex is slightly tortuous with mild disease nonobstructive disease Right Coronary Artery has mild disease nonobstructive disease LV Gram was not done, pressure was measured CONCLUSION: 1. Mild coronary artery disease nonobstructive disease 2. Normal left ventricular end-diastolic pressure 3. Significant spasm in the right radial and brachial artery improved after second injection of verapamil and nitroglycerin DISCUSSION AND RECOMMENDATION: Medical therapy is recommended no intervention is needed Anesthesia Type: Conscious Sedation Estimated blood loss (mL): 10 ml Contrast Amount: 37 ml Total Radiation Dose: 207 mGy Post-Procedure Diagnosis Post-operative diagnosis: Chest pain Coronary artery disease Hypertension Hyperlipidemia EKATERINA PATEL MD May 09, 2021 10:54
[2021-05-09] MEDS ORDERED: NS IV 1000 ML 1,000 ML IV SCH (11:00)
== END 2021-05-09 13:45 | disposition home or self-care (01) ==
LOC: CATH 10:00 → SDC 11:05 → CATH 13:45
PROVIDERS: ATTEND Internal Medicine Cardiovascular Disease
DX: I25.10 Atherosclerotic heart disease of native coronary artery without angina pectoris (principal); I12.9 Hypertensive chronic kidney disease with stage 1 through stage 4 chronic kidney disease, or unspecified chronic kidney disease; N18.9 Chronic kidney disease, unspecified; E78.5 Hyperlipidemia, unspecified; R00.2 Palpitations; I34.0 Nonrheumatic mitral (valve) insufficiency; K21.9 Gastro-esophageal reflux disease without esophagitis; I65.23 Occlusion and stenosis of bilateral carotid arteries; I49.9 Cardiac arrhythmia, unspecified; Z79.899 Other long term (current) drug therapy
CPT/HCPCS: 71045; 80053; 80061; 85025; 85610; 85730; 87081; 93458; C1894; 36415

== ENCOUNTER 2021-05-30 10:13 | Outpatient (CLI) | payer MEDICARE ==
[~2021-05-30 10:13] MED LIST changes: -HEParin (CATH LAB) 2,000 ML IV ONE; -LIDOCAINE 1% INJ 20 ML VIAL ONE; -NS IV 1000 ML 1,000 ML IV SCH; -NS IV 1000 ML 1,000 ML ONE
== END 2021-05-30 10:37 ==
LOC: SLEEP 10:13
PROVIDERS: ATTEND Internal Medicine Cardiovascular Disease
DX: G47.33 Obstructive sleep apnea (adult) (pediatric) (principal); G47.10 Hypersomnia, unspecified; I10 Essential (primary) hypertension; I49.9 Cardiac arrhythmia, unspecified
CPT/HCPCS: G0399

== ENCOUNTER 2021-06-01 13:43 | Outpatient (RCR) | payer MEDICARE ==
[2021-06-06] MEDS ORDERED: APIX5TAB PO (12:21)
[2021-06-06] MEDS ORDERED: ONDA-105 PO (12:21)
[2021-06-06] MEDS ORDERED: CALC-140 PO (12:21)
[2021-06-06] MEDS ORDERED: NIFE30TA89 PO (12:21)
[2021-06-06] MEDS ORDERED: NITR100C10 PO (12:21)
[2021-06-06] MEDS ORDERED: ASPI-1238 PO (14:37)
[2021-06-08] MEDS ORDERED: PANT40TA52 PO (10:07)
[2021-06-08] MEDS ORDERED: IBAN150T21 PO (10:07)
[2021-06-08] MEDS ORDERED: AMLO-251 PO (10:07)
[2021-06-08] MEDS ORDERED: NITR100C10 PO (10:07)
== END 2021-06-11 | disposition home or self-care (01) ==
PROVIDERS: ATTEND Family Medicine
DX: N81.10 Cystocele, unspecified (principal); N81.6 Rectocele; I10 Essential (primary) hypertension

== ENCOUNTER 2021-06-05 18:34 | Inpatient (IN) | payer MEDICARE ==
[~2021-06-05] VITALS: Ht 168.4 cm; Wt 79.3 kg
[2021-06-05] MEDS ORDERED: PANTOPRAZOLE 40 MG (PROTONIX) VIAL IV ONE (18:45)
[2021-06-05] MEDS ORDERED: NS IV 1000 ML 1,000 ML IV SCH (18:45)
[2021-06-05] MEDS ORDERED: ONDANSETRON 4 MG/2 ML (SDV) Z0FRAN IVP ONE (18:45)
[2021-06-05] MEDS ORDERED: PANTOPRAZOLE 40 MG (PROTONIX) VIAL ONE (18:45)
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
[2021-06-05 18:48] LABS: BASOPHILS % (AUTO) 0 % (0-10); EOSINOPHILS % (AUTO) 0 % (0-10); HEMATOCRIT 41 % (35-52); HEMOGLOBIN 13.7 g/dL (11.5-16.0); LYMPHOCYTES # (AUTO) 0.8 10^3/uL (1.0-4.0); LYMPHOCYTES % (AUTO) 5 % (12-44); MEAN CORPUSCULAR HEMOGLOBIN 32 pg (25-34); MEAN CORPUSCULAR HGB CONC 33 g/dL (32-36); MEAN CORPUSCULAR VOLUME 97 fL (80-99); MEAN PLATELET VOLUME 10.6 fL (9.0-12.2); MONOCYTES % (AUTO) 7 % (0-12); NEUTROPHILS # (AUTO) 13.5 10^3/uL (1.8-7.8); NEUTROPHILS % (AUTO) 88 % (42-75); PLATELET COUNT 233 10^3/uL (130-400); WHITE BLOOD COUNT 15.4 10^3/uL (4.3-11.0)
[2021-06-05 18:57] LABS: BILIRUBIN,URINE NEGATIVE (NEGATIVE); CLARITY,URINE CLOUDY; COLOR,URINE DARK YELLOW; GLUCOSE, URINE (UA) NEGATIVE (NEGATIVE); KETONES,URINE TRACE (NEGATIVE); LEUKOCYTE ESTERASE ,URINE 2+ (NEGATIVE); NITRITE,URINE NEGATIVE (NEGATIVE); PH,URINE 6.5 (5-9); PROTEIN,URINE 2+ (NEGATIVE)
[2021-06-05 18:59] LABS: ALBUMIN 4.5 GM/DL (3.2-4.5); POTASSIUM 3.1 MMOL/L (3.6-5.0)
[2021-06-05 19:00] LABS: CALCIUM 10.8 MG/DL (8.5-10.1)
[2021-06-05 19:01] LABS: INR 1.1 (0.8-1.4); PROTHROMBIN TIME PATIENT 14.1 SEC (12.2-14.7)
[2021-06-05 19:02] LABS: TOTAL PROTEIN 8.4 GM/DL (6.4-8.2)
[2021-06-05 19:05] LABS: CREATININE SERUM 1.32 MG/DL (0.60-1.30)
[2021-06-05 19:08] LABS: MAGNESIUM 2.2 MG/DL (1.6-2.4)
[2021-06-05 19:11] LABS: ERYTHROCYTE SEDIMENTATION RATE 28 MM/HR (0-30)
[2021-06-05 19:16] LABS: BACTERIA,URINE LARGE /HPF
[2021-06-05 19:18] LABS: CALCIUM OXALATE CRYSTALS,UR RARE /LPF
[2021-06-05 19:19] LABS: YEAST,URINE FEW /HPF
[2021-06-05 19:29] LABS: LYMPHOCYTES % (MANUAL) 5 %; MONOCYTES % (MANUAL) 4 %; NEUTROPHILS % (MANUAL) 91 %; RBC MORPH NORMAL
--- NOTE | 2021-06-05 19:40 | Diagnostic Imaging Report ---
Portable chest is compared to prior study from 04/19/2021. INDICATION: Fever. FINDINGS: There is slight elevation of the right hemidiaphragm. There is no evidence of alveolar consolidation. There is no large effusion. There is no pneumothorax. Heart size and mediastinal contours are unchanged. Pulmonary vascularity appears appropriate without evidence of failure. IMPRESSION: 1. Stable appearance of the chest. No new or acute cardiopulmonary process evident. Dictated by: Dictated on workstation # [id number]
[2021-06-05 19:49] LABS: BILIRUBIN,TOTAL 0.5 MG/DL (0.1-1.0)
--- NOTE | 2021-06-05 19:56 | Diagnostic Imaging Report ---
PROCEDURE: CT chest, abdomen, and pelvis without contrast. TECHNIQUE: Multiple contiguous axial images were obtained through the chest, abdomen, and pelvis without the use of intravenous contrast. Auto Exposure Controls were utilized during the CT exam to meet ALARA standards for radiation dose reduction. INDICATION: Vomiting and weakness. COMPARISON: Comparison is made with CT chest study from 05/14/[address] abdomen and pelvis study from 11/26/2019. CT CHEST: FINDINGS: No axillary lymphadenopathy is detected. No definite mediastinal or hilar lymphadenopathy is detected. There is no pericardial or pleural fluid. There is some scarring or atelectasis in the right middle lobe. No infiltrates are seen. There is a calcified granuloma in the left lower lobe. No noncalcified masses are detected. Bony structures are nonacute. IMPRESSION: No acute cardiopulmonary process is detected. CT ABDOMEN AND PELVIS: FINDINGS: The liver and gallbladder are unremarkable. There is no biliary ductal dilatation. Pancreas and spleen are unremarkable. The stomach is distended with fluid. There is distention of proximal small bowel loops as well. There is some mild inflammatory stranding adjacent to second portion of the duodenum. The patient appears to have possible malrotation with the majority of the small bowel loops in the right abdomen, and the distal small bowel is decompressed. There is generalized diverticulosis of the colon, but no evidence of acute diverticulitis. There is no free air. There is no free fluid or fluid collection. Bladder and uterus are unremarkable. IMPRESSION: 1. There is significant fluid-filled distention of the stomach and proximal small bowel loops. Patient does have a questionable malrotation pattern with potential proximal small bowel obstruction. Patient would likely benefit from a nasogastric tube. No free air is detected. There is no abscess formation. 2. Uncomplicated diverticulosis. Dictated by: Dictated on workstation # [id number]
[2021-06-05] MEDS ORDERED: fentaNYL INJ 100 MCG/2 ML AMP IVP ONE (20:00)
[2021-06-05] MEDS ORDERED: PROMETHAZINE INJ 25 MG/ML (PHENERGAN) AMP IVP ONE (20:00)
[2021-06-05] MEDS ORDERED: MEROPENEM 500 MG in NS (IVPB) 100 ML IV ONE (20:30)
--- NOTE | 2021-06-05 21:16 | Diagnostic Imaging Report ---
Portable chest is compared to prior study from earlier in the same day. INDICATION: NG tube placement. FINDINGS: New NG tube extends below the diaphragms to the stomach. Appearance of the lungs stable. There is elevation of the right hemidiaphragm. There is no new pneumonia or effusion. There is no pneumothorax. Heart and mediastinal contours are appropriate. IMPRESSION: 1. NG tube extends the stomach. Appearance of the chest is unchanged. Dictated by: Dictated on workstation # [id number]
[2021-06-05 21:23] LABS: OCCULT BLOOD,GASTRIC FLUID POSITIVE (NEGATIVE)
[2021-06-05] MEDS ORDERED: hydrALAZINE (APESOLINE) 20 MG/ML VIAL IV ONE (22:15)
[2021-06-05 22:45] VITALS: BP 148/52
[2021-06-05] MEDS ORDERED: fentaNYL INJ 100 MCG/2 ML AMP IV PRN (23:00)
[2021-06-05] MEDS ORDERED: ONDANSETRON 4 MG/2 ML (SDV) Z0FRAN IV PRN (23:00)
[2021-06-05] MEDS ORDERED: PROMETHAZINE INJ 25 MG/ML (PHENERGAN) AMP IVP PRN (23:00)
[2021-06-05] MEDS: D5 1/2 NS W/KCL 20 MEQ/L 1,000 ML IV SCH (23:28)
[2021-06-05 23:39] VITALS: BP 136/53
[2021-06-06] VITALS (7 sets, daily range): BP systolic 105–184; BP diastolic 44–75
[2021-06-06 02:32] LABS: OCCULT BLOOD,GASTRIC FLUID NEGATIVE (NEGATIVE)
[2021-06-06 05:03] LABS: BASOPHILS % (AUTO) 0 % (0-10); EOSINOPHILS % (AUTO) 0 % (0-10); HEMATOCRIT 33 % (35-52); HEMOGLOBIN 10.8 g/dL (11.5-16.0); LYMPHOCYTES # (AUTO) 1.4 10^3/uL (1.0-4.0); LYMPHOCYTES % (AUTO) 10 % (12-44); MEAN CORPUSCULAR HEMOGLOBIN 32 pg (25-34); MEAN CORPUSCULAR HGB CONC 33 g/dL (32-36); MEAN CORPUSCULAR VOLUME 98 fL (80-99); MEAN PLATELET VOLUME 10.5 fL (9.0-12.2); MONOCYTES # (AUTO) 1.5 10^3/uL (0.0-1.0); MONOCYTES % (AUTO) 11 % (0-12); NEUTROPHILS # (AUTO) 11.1 10^3/uL (1.8-7.8); NEUTROPHILS % (AUTO) 79 % (42-75); PLATELET COUNT 177 10^3/uL (130-400); WHITE BLOOD COUNT 14.1 10^3/uL (4.3-11.0)
[2021-06-06 05:22] LABS: POTASSIUM 3.4 MMOL/L (3.6-5.0)
[2021-06-06 05:23] LABS: CALCIUM 8.6 MG/DL (8.5-10.1)
[2021-06-06 05:27] LABS: CREATININE SERUM 1.01 MG/DL (0.60-1.30)
[2021-06-06] MEDS: D5 1/2 NS W/KCL 20 MEQ/L 1,000 ML IV SCH ×3 (05:43→19:46)
[2021-06-06] MEDS: MEROPENEM 500 MG/NS 100 ML IVPB IV SCH ×6 (05:44→20:56)
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
--- NOTE | 2021-06-06 07:58 | History & Physical ---
CHRISTINE MAHAJAN 06/06/21 0758: History of Present Illness History of Present Illness Reason for visit/HPI CC: Nausea and vomiting HPI: Ms. Portillo is an 80 year old female with a past medical history significant for CAD, HLD, and HTN who presented to the ED on 06/05/21 after a history of nausea, vomiting, and abdominal pain that began late on 06/04/21. She reports that she was continued nausea and vomiting throughout the night which was black/dark brown. She described it as looking like prune juice. She also had diffuse, achy abdominal pain. She reports her symptoms as becoming progressively worse. She endorsed associated shaking and weakness. She reports that the medicine did not help her. Nothing made her symptoms worse. She denied radiation of abdominal pain. She rated her symptoms as a 6/10. She also reported concurrent symptoms of a UTI including dysuria but that it was "the least of my concerns." Abdominal CT showed potential SBO. Date of Admission Jun 05, 2021 at 20:10 Date Seen by a Provider: Jun 06, 2021 Time Seen by a Provider: 07:20 I consulted on this patient on 06/06/21 07:58 Attending Physician John Miller DO Admitting Physician Marcus Gamboa MD Consult Allergies and Home Medications Allergies Coded Allergies: Cephalexin Monohydrate (Unverified Allergy, Severe, SWELLING, 11/18/17) Penicillins (Unverified Allergy, Severe, EDEMA, 11/18/17) codeine (Unverified Allergy, Severe, SWELLING, 11/18/17) erythromycin base (Unverified Allergy, Severe, SWELLING, 11/18/17) tiotropium bromide (Unverified Allergy, Severe, SWELLING, 11/18/17) tramadol (Verified Allergy, Mild, RASH, 11/18/17) azithromycin (Unverified Allergy, Unknown, 11/18/17) Sulfa (Sulfonamide Antibiotics) (Unverified Adverse Reaction, Mild, TIRED, 11/18/17) Patient Home Medication List Apixaban (Eliquis) 5 Mg Tablet, 5 MG PO BID, (Reported) Entered as Reported by: CRYSTAL ALLEN on 06/06/21 1221 Last Action: Held Aspirin (Aspirin EC) 81 Mg Tablet.dr, 81 MG PO HS, (Reported) Entered as Reported by: CRYSTAL ALLEN on 06/06/21 1437 Last Action: Held Atorvastatin Calcium (Atorvastatin Calcium) 20 Mg Tablet, 20 MG PO HS, (Reported) Entered as Reported by: LUPILLO BRANNON on 11/18/171340 Last Action: Held Calcium Carbonate/Vitamin D3 (Calcium + Vitamin D Tablet) 1 Each Tablet, 2 EACH PO DAILY, (Reported) Entered as Reported by: CRYSTAL ALLEN on 06/06/21 122 Last Action: Held Cholecalciferol (Vitamin D3) (Vitamin D3) 25 Mcg Tablet, 50 MCG PO DAILY, (Rep orted) Entered as Reported by: CRYSTAL ALLEN on 05/09/21845 Last Action: Held Cranberry Extract (Cranberry) 500 Mg Tablet, 500 MG PO BID, (Reported) Entered as Reported by: CRYSTAL ALLEN on 05/09/21845 Last Action: Held Cyanocobalamin (Vitamin B-12) (B-12) 3,000 Mcg/1 Ml Drops, 3,000 MCG SL DAILY, (Reported) Entered as Reported by: CRYSTAL ALLEN on 05/09/21845 Last Action: Held Fexofenadine HCl (Fexofenadine HCl) 180 Mg Tablet, 180 MG PO DAILY, (Reported) Entered as Reported by: LUPILLO BRANNON on 11/18/171340 Last Action: Held Fluticasone Propionate (Flovent Hfa 110 mcg) 1 Ea Aero, 2 PUFF IH DAILY, (R eported) Entered as Reported by: LUPILLO BRANNON on 11/18/171341 Last Action: Held Gabapentin (Gabapentin) 100 Mg Capsule, 100 MG PO 1800, (Reported) Entered as Reported by: LUPILLO BRANNON on 11/18/171341 Last Action: Held Ibandronate Sodium (Ibandronate Sodium) 150 Mg Tablet, 150 MG PO MONTHLY, (R eported) Entered as Reported by: LUPILLO BRANNON on 11/18/171340 Last Action: Held Multivitamin (Multivitamin) 1 Each Tablet, 1 EACH PO 1200, (Reported) Entered as Reported by: CRYSTAL ALLEN on 05/09/21845 Last Action: Held Nifedipine (Nifedipine ER) 30 Mg Tablet.er, 30 MG PO DAILY, (Reported) Entered as Reported by: CRYSTAL ALLEN on 06/06/211220 Last Action: Reviewed Nitrofurantoin Monohyd/M-Cryst (Nitrofurantoin Henderson-Mcr 100 mg) 100 Mg Capsule, 100 MG PO HS, (Reported) Entered as Reported by: CRYSTAL ALLEN on 06/06/211220 Last Action: Reviewed Bozman-3/Dha/Epa/Fish Oil (Fish Oil 1,000 mg Softgel) 1 Each Capsule, 2 EACH PO DAILY, (Reported) Entered as Reported by: CRYSTAL ALLEN on 05/09/21845 Last Action: Held Ondansetron HCl (Ondansetron HCl) 4 Mg Tablet, 4 MG PO Q8H PRN for NAUSEA/VOMITING-1ST LINE, (Reported) Entered as Reported by: CRYSTAL ALLEN on 06/06/211220 Last Action: Reviewed Pantoprazole Sodium (Pantoprazole Sodium) 40 Mg Tablet.dr, 40 MG PO DAILY, (Reported) Entered as Reported by: CRYSTAL ALLEN on 05/09/21845 Last Action: Reviewed Telmisartan (Telmisartan) 80 Mg Tablet, 80 MG PO 1800, (Reported) Entered as Reported by: CRYSTAL ALLEN on 05/09/21845 Last Action: Reviewed Ubidecarenone (Coq-10) 100 Mg Capsule, 100 MG PO 1200, (Reported) Entered as Reported by: CRYSTAL ALLEN on 05/09/21845 Last Action: Reviewed [Uqora ] , 1 EA PO UD, (Reported) Entered as Reported by: CRYSTAL ALLEN on 05/09/21845 Last Action: Reviewed Discontinued Medications Ascorbic Acid (Vitamin C) 500 Mg Tab.chew, 500 MG PO 1200, (Reported) Discontinued Reason: No Longer Taking Entered as Reported by: CRYSTAL ALLEN on 05/09/21845 Last Action: Discontinued Fluticasone Propionate (Flonase Allergy Relief) 9.9 Ml Shellman.susp, 1 SPRAY NSEACH HS, (Reported) Discontinued Reason: No Longer Taking Entered as Reported by: LUPILLO BRANNON on 11/18/17 1342 Last Action: Discontinued Metoprolol Succinate (Metoprolol Succinate) 25 Mg Tab.er.24h, 25 MG PO 1800, (Reported) Discontinued Reason: No Longer Taking Entered as Reported by: CRYSTAL ALLEN on 05/09/21845 Last Action: Discontinued Nitrofurantoin Monohyd/M-Cryst (Macrobid 100 mg Capsule) 100 Mg Capsule, 1 TAB PO HS, (Reported) Discontinued Reason: Duplicate Order Entered as Reported by: CRYSTAL ALLEN on 05/09/21845 Last Action: Discontinued Past Kgxdsnv-Pibicn-Zwdayu Hx Patient Social History Tobacco Use?: No Smoking Status: Never a Smoker Smokeless Tobacco Frequency: Never a User Use of E-Cig and/or Vaping dev: No Substance use?: No Alcohol Use?: No Pt feels they are or have been: No Immunizations Up To Date First/Initial COVID19 Vaccinat: 05/11/20 Second COVID19 Vaccination [place]: 06/08/20 Tetanus Booster (TDap): Unknown Seasonal Allergies Seasonal Allergies: Yes Current Status status: No Advance Directives: Yes Advance Directive Location: Home Communicates: Verbally Primary Language: Turkmen Preferred Spoken Language: Turkmen Is interpretation needed?: No Past Medical History Surgeries: Bladder Surgery, Breast, Cardiac, Eye Surgery (Cataracts), Rectal Coronary Artery Disease, High Cholesterol, Hypertension, Palpitations, Peripheral Vascular Kidney Infection, Neurogenic Bladder, UTI-Chronic Gastroesophageal Reflux Osteoporosis, Fractures Cataract Loss of Vision: Denies Hearing Impairment: Denies Skin Did You Recieve Any Treatments: Yes What Type of Treatment Did You: Surgical Intervention Blood Disorders: No Family Medical History Hypertension (Mother, father, brother, daughter), Other Conditions/Hx (Thyroid disease in daughter) PAST SURGICAL HISTORY: -CYSTOCOELE/RECTOCOELE REPAIR-10/1996 -SKIN CANCER/NOSE--08/30/2003 -SKIN CANCER/MOHS SURGERY 09/06/2008 -BILATERAL CATARACT SURGERIES 11/2017 -COLONOSCOPY 2018 -CARDIAC CATH 05/09/[address] BEYER: CONCLUSION: 1. Mild coronary artery disease nonobstructive disease 2. Normal left ventricular end-diastolic pressure 3. Significant spasm in the right radial and brachial artery improved after second injection of verapamil and nitroglycerin Review of Systems Constitutional: chills, fever Respiratory: No cough, No dyspnea on exertion, No short of breath Cardiovascular: No chest pain, No palpitations Gastrointestinal: abdominal pain (Diffuse), hematemesis, loss of appetite, nausea, vomiting Genitourinary: dysuria; No incontinence Psychiatric/Neurological: Denies Numbness, Denies Tingling Physical Exam Vital Signs Vital Signs - First Documented 06/04/21 06/05/21 23:34 18:35 Temp 37.3 Pulse 77 Resp 18 B/P (MAP) 159/70 (99) Pulse Ox 97 O2 Delivery Room Air Capillary Refill : Height, Weight, BMI Height: 5'6.50" Weight: 170lbs. 0.0oz. [id number]; 27.39 BMI Method: General Appearance: No Apparent Distress, WD/WN HEENT: PERRL/EOMI; No Scleral Icterus (L), No Scleral Icterus (R); Other (NG tube in place) Neck: Normal Inspection, Non Tender; No Lymphadenopathy (L), No Lymphadenopathy (R) Respiratory: Chest Non Tender, No Accessory Muscle Use, No Respiratory Distress, Wheezing (Expiratory B/L) Cardiovascular: No Edema, Normal Peripheral Pulses, Extra Beats (h/o PVC. 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 Miller consulted with surgery. Defer to surgery for management - Plan for SBFT. CT showed possible SBO. Possible UGIB - Recently started on DOAC with Dr. Beyer - Hematemesis UTI - Being treated with meropenem d/t drug allergies Leukocytosis - 14.1 and trending down Anemia - Could be d/t UGIB and/or dilutional Elevated BUN - Most likely d/t dehydration Elevated troponin - Cardiology consulted with Dr. Beyer - Negative CXR Hypokalemia PVCs CAD HTN HLD Plan: Continue fluids and antibiotics. Defer to surgery for management of potential SBO. SBFT will help guide clinical course. Defer to cardiology for management of elevated enzymes and PVCs. Supportive treatment and management of UTI. MARCUS GAMBOA MD 06/06/21 4434: History of Present Illness History of Present Illness Reason for visit/HPI PT IS AN 80 Y/O FEMALE WHO IS WELL KNOWN TO ME FROM CLINIC. SHE PRESENTED TO THE HOSPITAL WITH SEVERE ABDOMINAL PAIN AND WAS FOUND TO HAVE A SMALL BOWEL OBSTRUCTION BY CT SCAN. THE PATIENT REPORTS ABDOMINAL PAIN STARTING ON THE EVENING 06/04/21 AROUND MIDNIGHT, IT PROGRESSED TO THE POINT THAT SHE HAD UNCONTROLLED EMESIS AND WAS IN SO MUCH PAIN SHE FINALLY AGREED TO BE EVALUATED IN THE ER WHERE THE SMALL BOWEL OBSTRUCTION WAS IDENTIFIED. A SURGICAL CONSULT WAS PLACED, AN NG TUBE WAS PLACED, AND OCCULT ON THE EMESIS SHOWED BLOOD. PT WAS ADMITTED TO THE CARDIAC STEPDOWN UNIT. Date of Admission 06/05/21 Date Seen by a Provider: Jun 06, 2021 Time Seen by a Provider: 16:00 Attending Physician MARCUS GAMBOA MD Admitting Physician MARCUS GAMBOA MD Consult DR. POLI BEYER Allergies and Home Medications Allergies Coded Allergies: Cephalexin Monohydrate (Unverified Allergy, Severe, SWELLING, 11/18/17) Penicillins (Unverified Allergy, Severe, EDEMA, 11/18/17) codeine (Unverified Allergy, Severe, SWELLING, 11/18/17) erythromycin base (Unverified Allergy, Severe, SWELLING, 11/18/17) tiotropium bromide (Unverified Allergy, Severe, SWELLING, 11/18/17) tramadol (Verified Allergy, Mild, RASH, 11/18/17) azithromycin (Unverified Allergy, Unknown, 11/18/17) Sulfa (Sulfonamide Antibiotics) (Unverified Adverse Reaction, Mild, TIRED, 11/18/17) Patient Home Medication List Home Medication List Reviewed: Yes Apixaban (Eliquis) 5 Mg Tablet, 5 MG PO BID, (Reported) Entered as Reported by: CRYSTAL ALLEN on 06/06/21 1221 Last Action: Held Aspirin (Aspirin EC) 81 Mg Tablet.dr, 81 MG PO HS, (Reported) Entered as Reported by: CRYSTAL ALLEN on 06/06/21 1437 Last Action: Held Atorvastatin Calcium (Atorvastatin Calcium) 20 Mg Tablet, 20 MG PO HS, (Rep orted) Entered as Reported by: LUPILLO BRANNON on 11/18/17 1341 Last Action: Held Calcium Carbonate/Vitamin D3 (Calcium + Vitamin D Tablet) 1 Each Tablet, 2 EACH PO DAILY, (Reported) Entered as Reported by: CRYSTAL ALLEN on 06/06/211220 Last Action: Held Cholecalciferol (Vitamin D3) (Vitamin D3) 25 Mcg Tablet, 50 MCG PO DAILY, (Reported) Entered as Reported by: CRYSTAL ALLEN on 05/09/21845 Last Action: Held Cranberry Extract (Cranberry) 500 Mg Tablet, 500 MG PO BID, (Reported) Entered as Reported by: CRYSTAL ALLEN on 05/09/21845 Last Action: Held Cyanocobalamin (Vitamin B-12) (B-12) 3,000 Mcg/1 Ml Drops, 3,000 MCG SL DAILY, (Reported) Entered as Reported by: CRYSTAL ALLEN on 05/09/21845 Last Action: Held Fexofenadine HCl (Fexofenadine HCl) 180 Mg Tablet, 180 MG PO DAILY, (Reported) Entered as Reported by: LUPILLO BRANNON on 11/18/171340 Last Action: Held Fluticasone Propionate (Flovent Hfa 110 mcg) 1 Ea Aero, 2 PUFF IH DAILY, (Reported) Entered as Reported by: LUPILLO BRANNON on 11/18/171341 Last Action: Held Gabapentin (Gabapentin) 100 Mg Capsule, 100 MG PO 1800, (Reported) Entered as Reported by: LUPILLO BRANNON on 11/18/171341 Last Action: Held Ibandronate Sodium (Ibandronate Sodium) 150 Mg Tablet, 150 MG PO MONTHLY, (Reported) Entered as Reported by: LUPILLO BRANNON on 11/18/171340 Last Action: Held Multivitamin (Multivitamin) 1 Each Tablet, 1 EACH PO 1200, (Reported) Entered as Reported by: CRYSTAL ALLEN on 05/09/21845 Last Action: Held Nifedipine (Nifedipine ER) 30 Mg Tablet.er, 30 MG PO DAILY, (Reported) Entered as Reported by: CRYSTAL ALLEN on 06/06/211220 Last Action: Reviewed Nitrofurantoin Monohyd/M-Cryst (Nitrofurantoin Henderson-Mcr 100 mg) 100 Mg Capsule, 100 MG PO HS, (Reported) Entered as Reported by: CRYSTAL ALLEN on 06/06/211220 Last Action: Reviewed Bozman-3/Dha/Epa/Fish Oil (Fish Oil 1,000 mg Softgel) 1 Each Capsule, 2 EACH PO DAILY, (Reported) Entered as Reported by: CRYSTAL ALLEN on 05/09/21845 Last Action: Held Ondansetron HCl (Ondansetron HCl) 4 Mg Tablet, 4 MG PO Q8H PRN for NAUSEA/VOMITING-1ST LINE, (Reported) Entered as Reported by: CRYSTAL ALLEN on 06/06/21 1221 Last Action: Reviewed Pantoprazole Sodium (Pantoprazole Sodium) 40 Mg Tablet.dr, 40 MG PO DAILY, (Reported) Entered as Reported by: CRYSTAL ALLEN on 05/09/21845 Last Action: Reviewed Telmisartan (Telmisartan) 80 Mg Tablet, 80 MG PO 1800, (Reported) Entered as Reported by: CRYSTAL ALLEN on 05/09/21845 Last Action: Reviewed Ubidecarenone (Coq-10) 100 Mg Capsule, 100 MG PO 1200, (Reported) Entered as Reported by: CRYSTAL ALLEN on 05/09/21845 Last Action: Reviewed [Uqora ] , 1 EA PO UD, (Reported) Entered as Reported by: CRYSTAL ALLEN on 05/09/21845 Last Action: Reviewed Discontinued Medications Ascorbic Acid (Vitamin C) 500 Mg Tab.chew, 500 MG PO 1200, (Reported) Discontinued Reason: No Longer Taking Entered as Reported by: CRYSTAL ALLEN on 05/09/21845 Last Action: Discontinued Fluticasone Propionate (Flonase Allergy Relief) 9.9 Ml Shellman.susp, 1 SPRAY NSEACH HS, (Reported) Discontinued Reason: No Longer Taking Entered as Reported by: LUPILLO BRANNON on 11/18/17 1342 Last Action: Discontinued Metoprolol Succinate (Metoprolol Succinate) 25 Mg Tab.er.24h, 25 MG PO 1800, (Reported) Discontinued Reason: No Longer Taking Entered as Reported by: CRYSTAL ALLEN on 05/09/21845 Last Action: Discontinued Nitrofurantoin Monohyd/M-Cryst (Macrobid 100 mg Capsule) 100 Mg Capsule, 1 TAB PO HS, (Reported) Discontinued Reason: Duplicate Order Entered as Reported by: CRYSTAL ALLEN on 05/09/21845 Last Action: Discontinued Past Htdweqo-Fccfmk-Dsignd Hx Patient Social History Marrital Status: Living Status: LIVES AT HOME WITH SPOUSE Employed/Student: retired Tobacco Use?: No Use of E-Cig and/or Vaping dev: No Substance use?: No Alcohol Use?: No Seasonal Allergies Seasonal Allergies: Yes Current Status status: No Communicates: Verbally Primary Language: Turkmen Preferred Spoken Language: Turkmen Is interpretation needed?: No Implanted or Applied Medical D: None Past Medical History Surgeries: Bladder Surgery, Breast, Cardiac, Eye Surgery (Cataracts), Rectal Currently Using CPAP: No Currently Using BIPAP: No High Cholesterol, Hypertension UTI-Chronic Chronic Constipation Loss of Vision: Denies Hearing Impairment: Denies Blood Disorders: No Adverse Reaction/Blood Tranf: No Family Medical History Reviewed Nursing Family Hx Hypertension (Mother, father, brother, daughter), Other Conditions/Hx (Thyroid disease in daughter) Review of Systems Constitutional: chills, fever, malaise, weakness Respiratory: No cough, No dyspnea on exertion, No short of breath Cardiovascular: No chest pain, No palpitations Gastrointestinal: abdominal pain (Diffuse), hematemesis, loss of appetite, nausea, vomiting Genitourinary: dysuria; No incontinence Musculoskeletal: no symptoms reported, muscle weakness Skin: no symptoms reported Psychiatric/Neurological: Denies Numbness, Denies Tingling; Weakness All Other Systems Reviewed Negative Unless Noted: Yes Physical Exam General Appearance: No Apparent Distress, WD/WN, Other (PT BEING CLEANED UP AFTER A BOWEL MOVEMENT) HEENT: PERRL/EOMI, Pharyngeal Erythema Neck: Full Range of Motion, Normal Inspection, Non Tender; No Lymphadenopathy (L), No Lymphadenopathy (R) Respiratory: Chest Non Tender, Lungs Clear, Normal Breath Sounds, No Accessory Muscle Use, No Respiratory Distress; No Wheezing (Expiratory B/L) Cardiovascular: Regular Rate, Rhythm, No Edema, Normal Peripheral Pulses, Extra Beats (h/o PVC. 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 - PT HAD SMALL BOWEL FOLLOW THRU TODAY WHICH WAS RAPID AND SHOWED COMPLETE RESOLUTION OF THE OBSTRUCTION. - DISCUSSION WITH SURGEON - DECISION MADE TO PULL THE NG TUBE, FEED PT CLEAR LIQUIDS AND MONITOR SYMPTOMS. - ATTEMPTED PHONE CALL TO FAMILY - NO ANSWER ON DTR'S PHONE, WENT STRAIGHT TO [facility] AND THE [employer] BOX WAS FULL SO I COULD NOT LEAVE A MESSAGE. ANEMIA - PARTIALLY DILUTION WITH SMALL UPPER GI BLEED - WILL MONITOR REPEAT LABS IN MORNING. URINARY TRACT INFECTION - ECOLI - PT ON MEROPENEM - SHE HAS AN EXTREME NUMBER OF DRUG ALLERGIES - ALMOST EVERY CLASS OF ANTIBIOTIC HAS AN ALLERGY LISTED, PT WAS THEREFORE STARTED ON MEROPENEM THROUGH THE ER. - WAITING ON CULTURE REPORT. 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 LEUKOCYTOSIS - SLIGHTLY IMPROVED - SHOULD IMPROVE WITH TREATMENT OF UTI AND SMALL BOWEL OBSTRUCTION. 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 AGREE WITH STUDENT NOTE DOCUMENTED MY NOTE WAS LATE DUE TO PT BEING IN RADIOLOGY DURING ROUNDS THIS MORNING. CHRISTINE MAHAJAN Jun 06, 2021 07:58 MARCUS GAMBOA MD Jun 06, 2021 16:48
[2021-06-06] MEDS ORDERED: DIATRIZOATE MEGLUM/SODIUM 37% 120 ML (GASTROGRAFIN) NG ONE (08:00)
[2021-06-06] MEDS: PANTOPRAZOLE 40 MG (PROTONIX) VIAL IV SCH ×2 (09:00→19:46)
--- NOTE | 2021-06-06 10:32 | Diagnostic Imaging Report ---
INDICATION: Abnormal CT scan raising question of a small bowel obstruction. 120 mL of gastrografin contrast mixed with 120 mL of water was injected through patient's indwelling NG tube. Serial radiographs of the abdomen were then obtained. Preliminary radiograph of the abdomen demonstrates a normal-appearing bowel gas pattern. NG tube in place. There has been decompression of the stomach and proximal small bowel loops since CT study performed the night before. After contrast was injected there is visualization of the stomach with prompt emptying into small bowel loops. Small bowel loops now have a normal diameter. There is normal progression of contrast through the small bowel to the right colon. Contrast reaches right colon at approximately one hour. The mucosal fold pattern is normal. No mass is detected. There is no obstruction. IMPRESSION: Normal small bowel study. No small bowel obstruction is identified. Dictated by: Dictated on workstation # [id number]
--- NOTE | 2021-06-06 11:31 | Consultation-Cardiology ---
HPI-Cardiology Cardiology Consultation Date of Consultation 06/06/21 Date of Admission Time Seen by Provider: 07:20 Indication: elevated troponin HPI Patient is an 80 y/o female with history of nonobstructive CAD, HTN, radial artery occlusion post LHC, presented to the ER with complaints of nausea and coffee ground-like emesis with severe abdominal pain since onset 06/04/21. Work up done in ER showed probably SBO. Patient currently has NG tube placed. Reporting improvement of her abdominal pain. Denies any chest pain or dyspnea. Home Medications & Allergies Allergies: Coded Allergies: Cephalexin Monohydrate (Unverified Allergy, Severe, SWELLING, 11/18/17) Penicillins (Unverified Allergy, Severe, EDEMA, 11/18/17) codeine (Unverified Allergy, Severe, SWELLING, 11/18/17) erythromycin base (Unverified Allergy, Severe, SWELLING, 11/18/17) tiotropium bromide (Unverified Allergy, Severe, SWELLING, 11/18/17) tramadol (Verified Allergy, Mild, RASH, 11/18/17) azithromycin (Unverified Allergy, Unknown, 11/18/17) Sulfa (Sulfonamide Antibiotics) (Unverified Adverse Reaction, Mild, TIRED, 11/18/17) Home Medication List Reviewed: Yes [id number] Hx Patient Social History Smoking Status: Never a Smoker 2nd Hand Smoke Exposure: No Recent Hopitalizations: No Physical Abuse Screen: No Sexual Abuse: No Have you traveled recently?: No Alcohol Use?: No Immunizations Up To Date Tetanus Booster (TDap): Unknown Past Medical History Nonobstructive CAD HTN Radial artery occlusion Family Medical History Significant Family History: No Pertinent Family Hx Review of Systems-General Review of Systems Constitutional: No chills, No diaphoresis, No dizziness, No fever; weakness EENTM: No blurred vision, No double vision Respiratory: see HPI; No cough, No dyspnea on exertion, No hemoptysis, No short of breath Cardiovascular: see HPI, chest pain; No edema, No Hx of Intervention, No palpitations, No syncope, No vascular heart diseas, No other Gastrointestinal: abdominal pain (diffuse), hematemesis (Reports multiple episodes of vomiting up brown/black material at home), nausea, vomiting Genitourinary: No decreased output, No discharge, No dysuria, No frequency : No Musculoskeletal: No back pain, No joint pain Skin: No change in color, No change in hair/nails Psychiatric/Neurological: Denies Anxiety, Denies Depressed All Other Systems Reviewed Negative Unless Noted: Yes (Negative excepted noted.) Reviewed Test Results Reviewed Test Results Lab Laboratory Tests 06/05/21 18:35: White Blood Count 15.4H, Red Blood Count 4.23, Hemoglobin 13.7, Hematocrit 41, Mean Corpuscular Volume 97, Mean Corpuscular Hemoglobin 32, Mean Corpuscular Hemoglobin Concent 33, Red Cell Distribution Width 12.4, Platelet Count 233, Mean Platelet Volume 10.6, Immature Granulocyte % (Auto) 1, Neutrophils (%) (Auto) 88H, Lymphocytes (%) (Auto) 5L, Monocytes (%) (Auto) 7, Eosinophils (%) (Auto) 0, Basophils (%) (Auto) 0, Neutrophils # (Auto) 13.5H, Lymphocytes # (Auto) 0.8L, Monocytes # (Auto) 1.0, Eosinophils # (Auto) 0.0, Basophils # (Auto) 0.0, Immature Granulocyte # (Auto) 0.1, Neutrophils % (Manual) 91, Lymphocytes % (Manual) 5, Monocytes % (Manual) 4, Blood Morphology Comment NORMAL, Erythrocyte Sedimentation Rate 28, Prothrombin Time 14.1, INR Comment 1.1, Activated Partial Thromboplast Time 30, Sodium Level 140, Potassium Level 3.1L, Chloride Level 91L, Carbon Dioxide Level 35H, Anion Gap 14, Blood Urea Nitrogen 27H, Creatinine 1.32H, Estimat Glomerular Filtration Rate 40, BUN/Creatinine Ratio 20, Glucose Level 154H, Calcium Level 10.8H, Corrected Calcium 10.4H, Magnesium Level 2.2, Total Bilirubin 0.5, Aspartate Amino Transf (AST/SGOT) 31, Alanine Aminotransferase (ALT/SGPT) 20, Alkaline Phosphatase 61, Troponin I 0.076H, C-Reactive Protein High Sensitivity 0.26, Total Protein 8.4H, Albumin 4.5, Amylase Level 40, Lipase 60, Procalcitonin 0.03 06/05/21 18:48: Lactic Acid Level 1.48 06/05/21 18:50: Urine Color DARK YELLOW, Urine Clarity CLOUDY, Urine pH 6.5, Urine Specific [place] 1.020, Urine Protein 2+H, Urine Glucose (UA) NEGATIVE, Urine Ketones TRACEH, Urine Nitrite NEGATIVE, Urine Bilirubin NEGATIVE, Urine Urobilinogen 0.2, Urine Leukocyte Esterase 2+H, Urine RBC (Auto) 1+H, Urine RBC 2-5H, Urine WBC 5-10H, Urine Crystals PRESENTH, Urine Calcium Oxalate Crystals RAREH, Urine Bacteria LARGEH, Urine Casts NONE, Urine Mucus NEGATIVE, Urine Yeast FEWH, Urine Culture Indicated YES 06/05/21 18:52: Influenza Type A (RT-PCR) Not Detected, Influenza Type B (RT-PCR) Not Detected, SARS-CoV-2 RNA (RT-PCR) Not Detected 06/05/21 21:00: Gastric Fluid Occult Blood POSITIVEH 06/06/21 02:00: Gastric Fluid Occult Blood NEGATIVE 06/06/21 04:45: White Blood Count 14.1H, Red Blood Count 3.34L, Hemoglobin 10.8#L, Hematocrit 33L, Mean Corpuscular Volume 98, Mean Corpuscular Hemoglobin 32, Mean Corpuscular Hemoglobin Concent 33, Red Cell Distribution Width 12.8, Platelet Count 177, Mean Platelet Volume 10.5, Immature Granulocyte % (Auto) 0, Neutrophils (%) (Auto) 79H, Lymphocytes (%) (Auto) 10L, Monocytes (%) (Auto) 11, Eosinophils (%) (Auto) 0, Basophils (%) (Auto) 0, Neutrophils # (Auto) 11.1H, Lymphocytes # (Auto) 1.4, Monocytes # (Auto) 1.5H, Eosinophils # (Auto) 0.0, Basophils # (Auto) 0.0, Immature Granulocyte # (Auto) 0.1, Sodium Level 140, Potassium Level 3.4L, Chloride Level 103, Carbon Dioxide Level 27, Anion Gap 10, Blood Urea Nitrogen 24H, Creatinine 1.01, Estimat Glomerular Filtration Rate 56, BUN/Creatinine Ratio 24, Glucose Level 127H, Calcium Level 8.6 Microbiology 06/05/21 Urine Culture - Preliminary, Resulted Escherichia coli Physical Exam Physical Exam Vital Signs Vital Signs - First Documented 06/04/21 06/05/21 23:34 18:35 Temp 37.3 Pulse 77 Resp 18 B/P (MAP) 159/70 (99) Pulse Ox 97 O2 Delivery Room Air Capillary Refill : Height, Weight, BMI Height: 5'6.50" Weight: 170lbs. 0.0oz. [id number]; 27.39 BMI Method: General Appearance: No Apparent Distress, WD/WN Eyes: Bilateral Eye Normal Inspection, Bilateral Eye PERRL, Bilateral Eye EOMI HEENT: PERRL/EOMI; No Scleral Icterus (L), No Scleral Icterus (R); Other (NG tube in place) Neck: Normal Inspection, Non Tender; No Lymphadenopathy (L), No Lymphadenopathy (R) Respiratory: Chest Non Tender, No Accessory Muscle Use, No Respiratory Distress, Wheezing (Expiratory B/L) Cardiovascular: Regular Rate, Rhythm, No Edema, Normal Peripheral Pulses Gastrointestinal: Normal Bowel Sounds, Non Tender, Soft; No Distended, No Guarding Extremity: Normal Capillary Refill, Normal Inspection, Non Tender, No Pedal Edema Neurologic/Psychiatric: Alert, Oriented x3, No Motor/Sensory Deficits, Normal 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 H&H has mild drop, continue to monitor, managed by medical and surgical team. Agree with holding aspirin and Eliquis. Probable SBO per CT abdomen. NG tube in place, patient reporting improvement of symptoms. Abd xray series done this morning showing resolution of SBO. Management per surgical services. Mildly elevated troponin, likely type II [place]. Underwent recent LHC revealing nonobstructive disease. Chest discomfort, reporting improvement. Cardiac catheterization was carried out on May 09, 2021 showing mild disease nonobstructive disease. Continue to monitor. Status post occlusion of the right radial artery after angiogram with radial access- Patient had significant radial and brachial artery spasm noted during the procedure responder to nitroglycerin and verapamil. About a week after the procedure she developed numbness and pain in R arm, ultrasound showed occlusion of the radial artery. Ultrasound was repeated on May 29, 2021, still having occlusion of the radial artery, Started on Eliquis in addition to ASA. Currently on hold d/t GI bleed. 2D echo was done on March 15, 2021 showing normal LV size with mild LVH, ejection fraction 70 to 75%, grade 1 diastolic dysfunction, left atrium 5.1 cm, mild MR, PA pressure 50 mmHg. Continue to monitor Sinus node dysfunction, episodes of bradycardia, noted on the Holter monitor to monitor showing heart rate in the 40s. Metoprolol was discontinued. Still having occasional episodes of lightheadedness. Her energy level is slightly better, no syncope was reported. We will continue monitoring closely and consider placement of pacemaker if patient becomes symptomatic. Recurrent palpitation, Holter monitor showed sinus rhythm with episodes of sinus bradycardia with a heart rate 40 bpm at 11:30 PM. Frequent PVCs and ventricular bigeminy and occasional short PAT's. Having bradycardia and generalized fatigue. Feeling slightly better after starting Toprol. We will continue monitoring Generalized fatigue, episode of bradycardia, questionable sleep apnea, will evaluate sleep study Labile hypertension, restart home blood pressure medications and continue to monitor History of rheumatic fever as a child, systolic murmur on physical examination, mild mitral regurgitation per echo. Normal rheumatic heart disease. Hyperlipidemia, maintained on Lipitor 20 mg daily, monitor lipids Gastroesophageal reflux disease, maintained on pantoprazole. Mild bilateral carotid stenosis, ultrasound was done February 2021, continue to monitor Thank you for allowing us to participate in the management of Ms. Portillo. This is Lisa Bah PA-C, as a scribe for Dr. Beyer. Patient was seen and evaluated with Lisa, I discussed the management plan and interviewed the patient, examined the patient, agree with the current scribed note Patient is feeling better, repeat x-ray showed improvement There is questionable small bowel obstruction, probably her symptoms are secondary to the bleeding. She has been maintained on aspirin and Eliquis Stopped at this time and recommend PPI. May require endoscopy. Monitor blood pressure and lipids. LISA HENSON Jun 06, 2021 11:31 EKATERINA BEYER MD Jun 06, 2021 12:46
[2021-06-06] MEDS ORDERED: CALC-140 PO (12:21)
[2021-06-06] MEDS ORDERED: NITR100C10 PO (12:21)
[2021-06-06] MEDS ORDERED: APIX5TAB PO (12:21)
[2021-06-06] MEDS ORDERED: ONDA-105 PO (12:21)
[2021-06-06] MEDS ORDERED: NIFE30TA89 PO (12:21)
[2021-06-06] MEDS ORDERED: ASPI-1238 PO (14:37)
[2021-06-07] MEDS: D5 1/2 NS W/KCL 20 MEQ/L 1,000 ML IV SCH ×2 (02:43→08:43)
[2021-06-07 03:54] VITALS: BP 172/74
[2021-06-07 05:28] LABS: HEMATOCRIT 33 % (35-52); HEMOGLOBIN 10.6 g/dL (11.5-16.0); MEAN CORPUSCULAR HEMOGLOBIN 32 pg (25-34); MEAN CORPUSCULAR HGB CONC 32 g/dL (32-36); MEAN CORPUSCULAR VOLUME 101 fL (80-99); MEAN PLATELET VOLUME 10.3 fL (9.0-12.2); PLATELET COUNT 146 10^3/uL (130-400); WHITE BLOOD COUNT 10.4 10^3/uL (4.3-11.0)
[2021-06-07 05:41] LABS: ALBUMIN 2.8 GM/DL (3.2-4.5); POTASSIUM 3.7 MMOL/L (3.6-5.0)
[2021-06-07 05:42] LABS: CALCIUM 7.8 MG/DL (8.5-10.1)
[2021-06-07 05:44] LABS: TOTAL PROTEIN 5.3 GM/DL (6.4-8.2)
[2021-06-07 05:45] LABS: BILIRUBIN,TOTAL 0.5 MG/DL (0.1-1.0)
[2021-06-07 05:47] LABS: CREATININE SERUM 0.78 MG/DL (0.60-1.30)
[2021-06-07] MEDS: MEROPENEM 500 MG/NS 100 ML IVPB IV SCH ×6 (06:00→22:02)
--- NOTE | 2021-06-07 06:02 | Progress Note - Surgery ---
BONG DOBBS MED STUDENT 06/07/21 0602: Subjective Date Seen by a Provider: Jun 07, 2021 Time Seen by a Provider: 05:30 Subjective/Events-last exam Patient reports feeling better today but complains of weakness and shakiness. Denies nausea, vomiting, and abdominal pain. Denies chest pain, SOB, and fevers/chills. Reports is passing flatus and last BM was around 10pm overnight. Tolerating clears without issue. Denies pain or other complaints at this time. Review of Systems General: No Chills, No Night Sweats; Fatigue, Malaise HEENT: No Head Aches, No Visual Changes Pulmonary: No Dyspnea, No Cough Cardiovascular: No: Chest Pain, Palpitations, Edema Gastrointestinal: No: Nausea, Vomiting, Abdominal Pain, Diarrhea, Constipation Genitourinary: No Dysuria, No Frequency; Other (eaton) Musculoskeletal: No: neck pain, back pain Neurological: No: Numbness, Change in speech, Confusion Focused Exam Lactate Level 06/05/21 18:48: Lactic Acid Level 1.48 Objective Exam Vital Signs Date Time Temp Pulse Resp B/P (MAP) Pulse Ox O2 Delivery O2 Flow Rate FiO2 06/07/21 03:54 36.7 58 14 172/74 (106) 98 Room Air 06/07/21 01:00 60 06/06/21 23:10 36.6 56 17 167/65 (99) 97 Room Air 06/06/21 20:58 58 14 161/59 (93) 97 Room Air 06/06/21 20:00 Room Air 06/06/21 19:30 36.9 61 16 184/75 (111) 96 Room Air 06/06/21 19:00 70 06/06/21 16:00 58 13 167/73 (104) 95 Room Air 06/06/21 12:51 59 06/06/21 12:00 36.9 64 20 169/74 (105) 95 Room Air 06/06/21 08:00 Room Air 06/06/21 08:00 37.5 68 16 152/64 (93) 95 06/06/21 07:00 67 I & O 06/07/21 07:00 Intake Total 2350 ml Output Total 625 ml Balance 1725 ml Capillary Refill : General Appearance: No Apparent Distress, WD/WN HEENT: PERRL/EOMI, Moist Mucous Membranes Neck: Full Range of Motion, Normal Inspection, Non Tender, Lymphadenopathy (R) Respiratory: Chest Non Tender, Lungs Clear, Normal Breath Sounds, No Accessory Muscle Use, No Respiratory Distress Cardiovascular: Regular Rate, Rhythm, No Edema, Normal Peripheral Pulses Peripheral Pulses: 2+ Dorsalis Pedis (R), 2+ Left Dors-Pedis (L); 0 Radial Pulses (R); 2+ Radial Pulses (L) Gastrointestinal: normal bowel sounds, non tender, soft Extremity: Normal Capillary Refill, Normal Inspection, Normal Range of Motion, Non Tender, No Calf Tenderness, No Pedal Edema Neurologic/Psychiatric: Alert, Oriented x3, No Motor/Sensory Deficits, Normal Mood/Affect Skin: Normal Color, Warm/Dry Lymphatic: No Adenopathy Results Lab Laboratory Tests 06/06/21 20:59: Stool Occult Blood Immunoassay POSITIVEH 06/07/21 05:15: White Blood Count 10.4, Red Blood Count 3.30L, Hemoglobin 10.6L, Hematocrit 33L, Mean Corpuscular Volume 101H, Mean Corpuscular Hemoglobin 32, Mean Corpuscular Hemoglobin Concent 32, Red Cell Distribution Width 12.7, Platelet Count 146, Mean Platelet Volume 10.3, Sodium Level 139, Potassium Level 3.7, Chloride Level 109H, Carbon Dioxide Level 24, Anion Gap 6, Blood Urea Nitrogen 11, Creatinine 0.78, Estimat Glomerular Filtration Rate 76, BUN/Creatinine Ratio 14, Glucose Level 107H, Calcium Level 7.8L, Corrected Calcium 8.8, Total Bilirubin 0.5, Aspartate Amino Transf (AST/SGOT) 33, Alanine Aminotransferase (ALT/SGPT) 19, Alkaline Phosphatase 36L, Total Protein 5.3L, Albumin 2.8L Microbiology 06/05/21 Blood Culture - Preliminary, Resulted No growth 06/05/21 Urine Culture - Preliminary, Resulted Escherichia coli Assessment/Plan Assessment/Plan Assessment/Plan Small bowel obstruction-Resolved Nausea, vomiting-Resolved generalized abdominal pain-Resolved UTI Elevated troponin Upper GI bleeding Leukocytosis-Improved Anemia-Stable Recent radial artery occlusion right side Anticoagulated-Held Small bowel follow through study yesterday -Normal small bowel follow through -No small bowel obstruction eliquis and ASA on hold due to GI bleeding NGT removed Decrease IVF's increase po intake of clears today, advance slowly Antiemetics and pain meds continue antibiotics continue conservative management. Clinical Quality Measures DVT/VTE Risk/Contraindication: Contraindications-Pharm: Other *list below* Other: PT HAS GI BLEED,C ANNOT BE ON ANTICOAG DARRELL MILLER DO 06/08/21 1035: Subjective Subjective/Events-last exam No nausea or vomiting. Tolerating clears. No abdominal pain. + bowel function. Denies fever sweats chills shortness of breath or chest pain. Objective Exam General Appearance: No Apparent Distress, WD/WN HEENT: PERRL/EOMI, Moist Mucous Membranes Neck: Normal Inspection, Non Tender Respiratory: Chest Non Tender, No Accessory Muscle Use, No Respiratory Distress Cardiovascular: Regular Rate, Rhythm, No JVD Gastrointestinal: non tender, soft Extremity: Non Tender, No Calf Tenderness Neurologic/Psychiatric: Alert, Oriented x3, Normal Mood/Affect Skin: Normal Color, Warm/Dry Lymphatic: No Adenopathy Assessment/Plan Assessment/Plan Assessment/Plan Small bowel obstruction-Resolved Nausea, vomiting-Resolved generalized abdominal pain-Resolved UTI Elevated troponin Upper GI bleeding Leukocytosis-Improved Anemia-Stable Recent radial artery occlusion right side Anticoagulated-Held Small bowel follow through study yesterday -Normal small bowel follow through -No small bowel obstruction eliquis and ASA on hold due to GI bleeding NGT removed Decrease IVF's increase po intake of clears today, advance slowly Antiemetics and pain meds continue antibiotics continue conservative management. Supervisory-Addendum Brief Verification & Attestation Participated in pt care: history, MDM, physical Personally performed: exam, history, MDM, supervision of care Care discussed with: Medical Student Procedures: n/a Results interpretation: Verified all documentation Verification and Attestation of Medical Student E/M Service A medical student performed and documented this service in my presence. I reviewed and verified all information documented by the medical student and made modifications to such information, when appropriate. I personally performed the physical exam and medical decision making. Darrell Miller, Jun 07, 2021,10:35 [employer] MED STUDENT Jun 07, 2021 06:02 DARRELL MILLER DO Jun 08, 2021 10:35
--- NOTE | 2021-06-07 07:48 | Progress Note ---
Subjective Subjective Date Seen by Provider: Jun 07, 2021 Time Seen by Provider: 07:10 Ms. Portillo is being followed for a SBO and UGIB. This morning she reports that she feels tired and shaky. She denies abdominal pain and says her stomach feels way better. She says her stomach feels slightly crampy but not tender. She is on a clear liquid diet per surgery. The NG tube was removed yesterday. She denies vomiting or hematemesis. She had 3 bowel movements yesterday; she described them as loose but not diarrhea. Review of Systems General: No Chills, No Night Sweats; Fatigue, Malaise, Other (Shaky) HEENT: No Head Aches, No Visual Changes Pulmonary: No Dyspnea, No Cough Cardiovascular: No: Chest Pain, Palpitations, Edema Gastrointestinal: Diarrhea (Loose stools yesterday); No: Nausea, Vomiting, Abdominal Pain, Constipation Genitourinary: No Dysuria, No Frequency Musculoskeletal: neck pain (From laying in bed); No: back pain Neurological: No: Numbness, Change in speech, Confusion All Other Systems Reviewed All Other Systems Reviewed: Yes Objective Exam Vital Signs Vital Signs Date Time Temp Pulse Resp B/P (MAP) Pulse Ox O2 Delivery O2 Flow Rate FiO2 06/07/21 03:54 36.7 58 14 172/74 (106) 98 Room Air 06/07/21 01:00 60 06/06/21 23:10 36.6 56 17 167/65 (99) 97 Room Air 06/06/21 20:58 58 14 161/59 (93) 97 Room Air 06/06/21 20:00 Room Air 06/06/21 19:30 36.9 61 16 184/75 (111) 96 Room Air 06/06/21 19:00 70 06/06/21 16:00 58 13 167/73 (104) 95 Room Air 06/06/21 12:51 59 06/06/21 12:00 36.9 64 20 169/74 (105) 95 Room Air 06/06/21 08:00 Room Air 06/06/21 08:00 37.5 68 16 152/64 (93) 95 I & O 06/07/21 06:59 Intake Total 2500 ml Output Total 1325 ml Balance 1175 ml General Appearance: No Apparent Distress, WD/WN HEENT: PERRL/EOMI Neck: Full Range of Motion, Normal Inspection, Non Tender; No Lymphadenopathy (L), No Lymphadenopathy (R) Respiratory: Chest Non Tender, Lungs Clear, Normal Breath Sounds, No Accessory Muscle Use, No Respiratory Distress Cardiovascular: Regular Rate, Rhythm, No Edema, Normal Peripheral Pulses Gastrointestinal: Normal Bowel Sounds, No Organomegaly, No Pulsatile Mass, Non Tender, Soft Extremity: Normal Capillary Refill, Normal Inspection, Normal Range of Motion, Non Tender, No Pedal Edema Neurologic/Psychiatric: Alert, Oriented x3, No Motor/Sensory Deficits, Normal Mood/Affect Skin: Normal Color, Warm/Dry Lymphatic: No Adenopathy (Head and neck) Results Lab Laboratory Tests 06/06/21 20:59: Stool Occult Blood Immunoassay POSITIVEH 06/07/21 05:15: White Blood Count 10.4, Red Blood Count 3.30L, Hemoglobin 10.6L, Hematocrit 33L, Mean Corpuscular Volume 101H, Mean Corpuscular Hemoglobin 32, Mean Corpuscular Hemoglobin Concent 32, Red Cell Distribution Width 12.7, Platelet Count 146, Mean Platelet Volume 10.3, Sodium Level 139, Potassium Level 3.7, Chloride Level 109H, Carbon Dioxide Level 24, Anion Gap 6, Blood Urea Nitrogen 11, Creatinine 0.78, Estimat Glomerular Filtration Rate 76, BUN/Creatinine Ratio 14, Glucose Level 107H, Calcium Level 7.8L, Corrected Calcium 8.8, Total Bilirubin 0.5, Aspartate Amino Transf (AST/SGOT) 33, Alanine Aminotransferase (ALT/SGPT) 19, Alkaline Phosphatase 36L, Total Protein 5.3L, Albumin 2.8L Microbiology 06/05/21 Blood Culture - Preliminary, Resulted No growth 06/05/21 Urine Culture - Preliminary, Resulted Escherichia coli Assessment/Plan Assessment/Plan Admission Dx Assessment: SBO - Dr. Miller consulted with surgery. Defer to surgery for management - SBFT was unremarkable. No SBO. Possible UGIB - Recently started on DOAC with Dr. Beyer - Hematemesis UTI - Being treated with meropenem d/t drug allergies Leukocytosis - 10.4 and trending down Anemia - Could be d/t UGIB and/or dilutional Elevated BUN - Most likely d/t dehydration Elevated troponin - Cardiology consulted with Dr. Beyer - Negative CXR Hypokalemia PVCs CAD HTN HLD Plan: Continue fluids and antibiotics. Defer to surgery for management of potential SBO. SBFT showed full resolution of SBO Consider EGD? Defer to surgery. Defer to cardiology for management of elevated enzymes and PVCs. Supportive treatment and management of UTI. 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 - PT HAD SMALL BOWEL FOLLOW THRU TODAY WHICH WAS RAPID AND SHOWED COMPLETE RESOLUTION OF THE OBSTRUCTION. - DISCUSSION WITH SURGEON - DECISION MADE TO PULL THE NG TUBE, FEED PT CLEAR LIQUIDS AND MONITOR SYMPTOMS. - ATTEMPTED PHONE CALL TO FAMILY - NO ANSWER ON DTR'S PHONE, WENT STRAIGHT TO [employer] AND THE [employer] BOX WAS FULL SO I COULD NOT LEAVE A MESSAGE. - PT DOING WELL WITH NG TUBE REMOVED - BOWELS ARE FUNCTIONING, WILL SEE HOW SHE DOES TODAY WITH INCREASE IN DIET IF HER BREAKFAST OF LIQUIDS IS WELL TOLERATED. ANEMIA - PARTIALLY DILUTION WITH SMALL UPPER GI BLEED - WILL MONITOR REPEAT LABS IN MORNING. URINARY TRACT INFECTION - ECOLI - PT ON MEROPENEM - SHE HAS AN EXTREME NUMBER OF DRUG ALLERGIES - ALMOST EVERY CLASS OF ANTIBIOTIC HAS AN ALLERGY LISTED, PT WAS THEREFORE STARTED ON MEROPENEM THROUGH THE ER. - WAITING ON CULTURE REPORT. 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 LEUKOCYTOSIS - SLIGHTLY IMPROVED - SHOULD IMPROVE WITH TREATMENT OF UTI AND SMALL BOWEL OBSTRUCTION. DVT PROPHYLAXIS WITH SCD'S SINCE PT CANNOT TAKE ANTICOAGULATION DUE TO GI BLEED GI PROPHYLAXIS WITH PPI THERAPY CHRISTINE MAHAJAN Jun 07, 2021 07:48 MARCUS ALMANZA MD Jun 08, 2021 10:15
[2021-06-07 08:00] VITALS: BP 196/83
[2021-06-07] MEDS: PANTOPRAZOLE 40 MG (PROTONIX) VIAL IV SCH ×2 (08:43→22:02)
--- NOTE | 2021-06-07 08:44 | Cardiology Progress Note ---
Subjective Date Seen by Provider: Jun 07, 2021 Time Seen by Provider: 08:42 Subjective/Events-last exam Patient is laying down in bed, feeling better. No new complaint. Review of Systems General: No Chills, No Night Sweats, No Fatigue, No Malaise, No Appetite, No Other HEENT: No Head Aches, No Visual Changes, No Eye Pain, No Ear Pain, No Dysphasia, No Sinus Congestion, No Post Nasal Drip, No Sore Throat, No Other Pulmonary: No Dyspnea, No Cough, No Pleuritic Chest Pain, No Other Cardiovascular: No: Chest Pain, Palpitations, Orthopnea, Paroxysmal Noc. Dyspnea, Edema, Lt Headedness, Other Focused Exam Lactate Level 06/05/21 18:48: Lactic Acid Level 1.48 Objective-Cardiology Exam Last Set of Vital Signs Vital Signs 06/07/21 08:00 Temp 36.5 Pulse 61 Resp 15 B/P (MAP) 196/83 (120) Pulse Ox 96 O2 Delivery Room Air I&O Intake and Output 06/07/21 00:00 Intake Total 1250 ml Output Total 925 ml Balance 325 ml Intake Oral 250 ml IV Total 1000 ml Output Urine Total 875 ml Gastric Drainage Total 50 ml # Bowel Movements 3 General: Alert, Oriented X3, Cooperative HEENT: Atraumatic, PERRLA Neck: Supple, No JVD, No Thyromegaly Lungs: Clear to Auscultation, Normal Air Movement Heart: Regular Rate, Normal S1, Normal S2, No Murmurs Abdomen: Normal Bowel Sounds, Soft, No Tenderness, No Hepatosplenomegaly, No Masses Extremities: No Clubbing, No Cyanosis, No Edema, Normal Pulses, No Tenderness/Swelling Skin: No Rashes, No Breakdown, No Significant Lesion Neuro: Normal Gait, Normal Speech, Strength at 5/5 X4 Ext, Normal Tone, Se nsation Intact Psych/Mental Status: Mental Status NL, Mood NL Results Lab Laboratory Tests 06/07/21 05:15 A/P-Cardiology Admission Diagnosis SBO GI bleed HTN Radial artery occlusion Assessment/Plan GI bleed, probably upper GI bleed as a cause for the nausea and the coffee- ground emesis. H&H has mild drop, continue to monitor, managed by medical and surgical team. I will discontinue aspirin and Eliquis. No need to restart these medications. Probable SBO per CT abdomen. NG tube in place, patient reporting improvement of symptoms. Abd xray series done showing resolution of the small bowel obstruction. Mildly elevated troponin, likely type II IA. Underwent recent LHC revealing n onobstructive disease. Chest discomfort, reporting improvement. Cardiac catheterization was carried out on May 09, 2021 showing mild disease nonobstructive disease. Continue to monitor. Status post occlusion of the right radial artery after angiogram with radial access- Patient had significant radial and brachial artery spasm noted during the procedure responder to nitroglycerin and verapamil. About a week after the procedure she developed numbness and pain in R arm, ultrasound showed occlusion of the radial artery. Ultrasound was repeated on May 29, 2021, still having occlusion of the radial artery, patient is asymptomatic. Discontinue aspirin and Eliquis 2D echo was done on March 15, 2021 showing normal LV size with mild LVH, ejection fraction 70 to 75%, grade 1 diastolic dysfunction, left atrium 5.1 cm, mild MR, PA pressure 50 mmHg. Continue to monitor Sinus node dysfunction, episodes of bradycardia, noted on the Holter monitor to monitor showing heart rate in the 40s. Metoprolol was discontinued. Still having occasional episodes of lightheadedness. Her energy level is slightly better, no syncope was reported. We will continue monitoring closely and consider placement of pacemaker if patient becomes symptomatic. Recurrent palpitation, Holter monitor showed sinus rhythm with episodes of sinus bradycardia with a heart rate 40 bpm at 11:30 PM. Frequent PVCs and ventricular bigeminy and occasional short PAT's. Having bradycardia and generalized fatigue. Feeling slightly better after starting Toprol. We will continue monitoring Generalized fatigue, episode of bradycardia, questionable sleep apnea, will evaluate sleep study Labile hypertension, restart telmisartan 80 mg daily, I will start Norvasc 10 mg daily. Monitor blood pressure History of rheumatic fever as a child, systolic murmur on physical examination, mild mitral regurgitation per echo. Normal rheumatic heart disease. Hyperlipidemia, maintained on Lipitor 20 mg daily, monitor lipids Gastroesophageal reflux disease, maintained on pantoprazole. Mild bilateral carotid stenosis, ultrasound was done February 2021, continue to monitor EKATERINA PATEL MD Jun 07, 2021 08:44
[2021-06-07] MEDS ORDERED: hydrALAZINE (APESOLINE) 20 MG/ML VIAL IV ONE (09:00)
[2021-06-07] MEDS: amLODIPine 10 MG (NORVASC) TAB PO SCH (09:58)
[2021-06-07] MEDS: NIFEdipine ER 30 MG (PROCARDIA XL) TAB PO SCH (09:58)
[2021-06-07 11:31] VITALS: BP 150/61
--- NOTE | 2021-06-07 14:47 | Physical Therapy Evaluation ---
PT Evaluation-General Medical Diagnosis Admission Date Jun 05, 2021 at 20:10 Medical Diagnosis: nausea, vomiting, and abdominal pain Onset Date: Jun 05, 2021 Therapy Diagnosis Therapy Diagnosis: Gait deficit, strength deficit Height/Weight Height (Feet): 5 Height (Inches): 6.50 Weight (Pounds): 170 Weight (Ounces): 0.0 Precautions Precautions/Isolations: Fall Prevention, Standard Precautions Referral Physician: Dr. Gamboa Reason for Referral: Evaluation/Treatment Social History Home: Single Level Current Living Status: Spouse Entry Into Home: Stairs With Railing PT Steps Into Home: 3 Prior Prior Level of Function SCALE: Activities may be completed with or without assistive devices. 4-Qytwzpbvdc-jtjbjgl completes the activity by him/herself with no assistance from a helper. 5-Set-up or Clean-up Assistance-helper sets up or cleans up; patient completes activity. [place] assists only prior to or following the activity. 4-Supervision or Touching Assistance-helper provides verbal cues and/or touching/steadying and/or contact guard assistance as patient completes activity. Assistance may be provided throughout the activity or intermittently. 3-Partial/Moderate Assistance-helper does LESS THAN HALF the effort. [place] lifts, holds or supports trunk or limbs, but provides less than half the effort. 2-Substantial/Maximal Assistance-helper does MORE THAN HALF the effort. [place] lifts or holds trunk or limbs and provides more than half the effort. 4-Qbmembzsv-pinfgp does ALL the effort. Patient does none of the effort to complete the activity. Or, the assistance of 2 or more helpers is required for the patient to complete the activity. If activity was not attempted, code reason: 7-Patient Refused. 9-Not Applicable-not attempted and the patient did not perform the activity before the current illness, exacerbation or injury. 10-Not Attempted due to Environmental Limitations-(lack of equipment, weather restraints, etc.). 88-Not Attempted due to Medical Conditions or Safety Concerns. Bed Mobility: 6 Transfers (B,C,W/C): 6 Gait: 6 Stairs: 6 Indoor Mobility (Ambulation): Independent Stairs: Independent Prior Devices Use: None PT Evaluation-Current Subjective Patient lying supine in bed upon PT arrival, agreeable to treatment. Patient reports 0/10 pain currently Objective Patient Orientation: Person, Place, Time, Situation Attachments: [place] Catheter ROM/Strength ROM Lower Extremities WFLs Strength Lower Extremities 4/5 Bilaterally all planes Neuromuscular (Tone, Coordination, Reflexes) Coordination intact bilaterally Sensory Sensation Right Lower Extremit: Intact Sensation Left Lower Extremity: Intact Transfers Roll Left to Right (QC): 4 Sit to Lying (QC): 4 Lying to Sitting/Side of Bed(Q: 4 Sit to Stand (QC): 4 Chair/Jfw-qg-Prawa Xfer(QC): 4 Toilet Transfer (QC): 4 Gait Does the Patient Walk?: Yes Mode of Locomotion: Walk Anticipated Mode of Locomotion: Walk Walk 10 feet (QC): 4 Walk 50 ft with 2 Turns(QC): 4 Distance: 120 Gait Assistive Device: FWW Balance Sitting Static: Good Sitting Dynamic: Good Standing Static: Good Standing Dynamic: Good Assessment/Needs Patient tolerate treatment well. Demonstrates SBA for all observed bed mobility and transfers. Patient reports she needs to have a BM immediately upon standing up. Patient ambulates into the BR with FWW, with SBA. Patient requires min A for donning of briefs, however is I with toilet hygeine. Patient ambulates 120 feet with FWW, with SBA and verbal cues for safety, posture, conservation of energy. Patient reports she is very tired upon returning to room and feels a little light-headed. Patient in bed post treatment with all needs met, nursing notified, call light in hand. Rehab Potential: Good PT [facility] Goals Manager Club Goals PT Manager Club Goals Time Frame: Jun 22, 2021 Roll Left & Right (QC): 6 Sit to Lying (QC): 6 Lying-Sitting on Side/Bed(QC): 6 Sit to Stand (QC): 6 Chair/Ixo-go-Uosrm Xfer(QC): 6 Toilet Transfer (QC): 6 Does the Patient Walk: Yes Walk 10 feet (QC): 6 Walk 50ft with 2 Turns (QC): 6 Walk 150 ft (QC): 6 1 Step (curb) (QC): 4 4 Steps (QC): 4 12 Steps (QC): 4 PT Plan Problem List Problem List: Activity Tolerance, Functional Strength, Safety, Balance, Gait, Transfer, Bed Mobility, ROM Treatment/Plan Treatment Plan: Continue Plan of Care Treatment Plan: Bed Mobility, Education, Functional Activity Claudine, Functional Strength, Group Therapy, Gait, Safety, Therapeutic Exercise, Transfers Treatment Duration: Jul 06, 2021 Frequency: 6 times per week Estimated Hrs Per Day: .25 hour per day Patient and/or Family Agrees t: Yes Safety Risks/Education Patient Education: Gait Training Teaching Recipient: Patient Teaching Methods: Demonstration, Discussion Response to Teaching: Verbalize Understanding, Return Demonstration Discharge Recommendations Target Placement Home Time/GCodes Time In: 1350 Time Out: 1420 Total Billed Treatment Time: 30 Total Billed Treatment Visit, royce QUIÑONEZ JOHN A PT Jun 07, 2021 14:47
[2021-06-07 15:15] VITALS: BP 147/65
[2021-06-07] MEDS ORDERED: LOSARTAN 100 MG (COZAAR) TABLET PO SCH (18:00)
[2021-06-07 20:00] VITALS: BP 139/62
[2021-06-08] MEDS: MEROPENEM 500 MG/NS 100 ML IVPB IV SCH ×4 (06:13→14:10)
--- NOTE | 2021-06-08 07:23 | Progress Note ---
Subjective Subjective Date Seen by Provider: Jun 08, 2021 Time Seen by Provider: 07:10 Ms. Portillo is being followed for a SBO and UGIB. This morning she reports that she feels very good and denies all pain. She says her stomach is growling and she has a lot of flatus. She reports a bowel movement yesterday that was very loose. She is eating a soft diet and she is tolerating it well. Her BP is well controlled this morning after restarting medicine yesterday. She worked with PT yesterday and she says it felt very good to walk around and move. Review of Systems General: No Chills, No Fatigue HEENT: No Head Aches, No Visual Changes Pulmonary: No Dyspnea, No Cough Cardiovascular: No: Chest Pain, Palpitations, Edema Gastrointestinal: Diarrhea; No: Nausea, Vomiting, Abdominal Pain, Constipation Genitourinary: No Dysuria, No Frequency; Other ([place]) Musculoskeletal: No: neck pain, back pain Neurological: No: Numbness, Change in speech, Confusion All Other Systems Reviewed All Other Systems Reviewed: Yes Objective Exam Vital Signs Vital Signs Date Time Temp Pulse Resp B/P (MAP) Pulse Ox O2 Delivery O2 Flow Rate FiO2 06/08/21 04:00 37.0 06/08/21 01:00 62 06/08/21 00:00 36.1 06/07/21 20:00 Room Air 06/07/21 20:00 36.4 64 16 139/62 (87) 97 Room Air 06/07/21 19:00 65 06/07/21 15:15 37.1 66 12 147/65 (92) 97 Room Air 06/07/21 13:00 66 06/07/21 11:31 36.4 60 19 150/61 (90) 97 Room Air 06/07/21 08:00 Room Air 06/07/21 08:00 36.5 61 15 196/83 (120) 96 Room Air I & O 06/08/21 07:00 Intake Total 3530 ml Output Total 2975 ml Balance 555 ml General Appearance: No Apparent Distress, WD/WN HEENT: PERRL/EOMI, Moist Mucous Membranes; No Scleral Icterus (L), No Scleral Icterus (R) Neck: Normal Inspection, Non Tender; No Lymphadenopathy (L), No Lymphadenopathy (R) Respiratory: Chest Non Tender, No Accessory Muscle Use, No Respiratory Distress, Crackles (Slight crackles in the lower lobes) Cardiovascular: Regular Rate, Rhythm, No Edema, Normal Peripheral Pulses Gastrointestinal: Normal Bowel Sounds, No Organomegaly, No Pulsatile Mass, Non Tender, Soft Extremity: Normal Capillary Refill, Normal Inspection, Normal Range of Motion, Non Tender, No Pedal Edema Neurologic/Psychiatric: Alert, Oriented x3, No Motor/Sensory Deficits, Normal Mood/Affect Skin: Normal Color, Warm/Dry Lymphatic: No Adenopathy (Head and neck) Results Lab Microbiology 06/05/21 Blood Culture - Preliminary, Resulted No growth 06/05/21 Urine Culture - Final, Complete Escherichia coli Assessment/Plan Assessment/Plan Assessment and Plan Assessment: SBO - Dr. Miller consulted with surgery. Defer to surgery for management - No SBO seen on SBFT Possible UGIB - Recently started on DOAC with Dr. Beyer - Hematemesis UTI - Being treated with meropenem d/t drug allergies Leukocytosis - 10.4 and trending down Anemia - Could be d/t UGIB and/or dilutional Elevated BUN - Most likely d/t dehydration Elevated troponin - Cardiology consulted with Dr. Beyer - Negative CXR Hypokalemia PVCs CAD HTN HLD Plan: Continue fluids and antibiotics. Switch to PO abx. Defer to surgery for management of potential SBO. SBFT showed full resolution of SBO. Consider outpatient scopes depending on Dr. Miller's plan. Patient may not have any other episodes of hematemesis or +FOBT if anticoagulants are held. Defer to cardiology for management of elevated enzymes and PVCs. Supportive treatment and management of UTI. Plan to d/c home today. Clinical Quality Measures DVT/VTE Risk/Contraindication: Contraindications-Pharm: Other *list below* Other: PT HAS GI BLEED,C ANNOT BE ON ANTICOAG Supervisory-Addendum Brief Verification & Attestation Participated in pt care: history, MDM, physical Personally performed: exam, history, MDM, supervision of care Care discussed with: Medical Student Procedures: n/a Results interpretation: Verified all documentation AGREE WITH STUDENT NOTE DOCUMENTED SEE MY DC SUMMARY FOR DETAILS. CHRISTINE MAHAJAN Jun 08, 2021 07:23 MARCUS ALMANZA MD Jun 08, 2021 10:16
--- NOTE | 2021-06-08 07:54 | Progress Note - Surgery ---
BONG DOBBS MED STUDENT 06/08/21 0754: Subjective Date Seen by a Provider: Jun 08, 2021 Time Seen by a Provider: 07:15 Subjective/Events-last exam Patient reports feeling better today. Tolerating soft foods well. Continues passing flatus and having BM's. Denies chest pain, SOB, fevers, headaches, nausea, vomiting, and abdominal pain. Review of Systems General: No Chills, No Night Sweats HEENT: No Head Aches, No Visual Changes Pulmonary: No Dyspnea, No Cough Cardiovascular: No: Chest Pain, Palpitations, Edema Gastrointestinal: No: Nausea, Vomiting, Abdominal Pain Genitourinary: No Dysuria, No Frequency; Other ([place]) Musculoskeletal: No: neck pain, back pain Neurological: No: Weakness, Numbness, Change in speech, Confusion Focused Exam Lactate Level 06/05/21 18:48: Lactic Acid Level 1.48 Objective Exam Vital Signs Date Time Temp Pulse Resp B/P (MAP) Pulse Ox O2 Delivery O2 Flow Rate FiO2 06/08/21 07:00 63 06/08/21 04:00 37.0 06/08/21 01:00 62 06/08/21 00:00 36.1 06/07/21 20:00 Room Air 06/07/21 20:00 36.4 64 16 139/62 (87) 97 Room Air 06/07/21 19:00 65 06/07/21 15:15 37.1 66 12 147/65 (92) 97 Room Air 06/07/21 13:00 66 06/07/21 11:31 36.4 60 19 150/61 (90) 97 Room Air 06/07/21 08:00 Room Air 06/07/21 08:00 36.5 61 15 196/83 (120) 96 Room Air I & O 06/08/21 07:00 Intake Total 3530 ml Output Total 2975 ml Balance 555 ml Capillary Refill : General Appearance: No Apparent Distress, WD/WN HEENT: PERRL/EOMI, Moist Mucous Membranes Neck: Normal Inspection, Non Tender; No Lymphadenopathy (L), No Lymphadenopathy (R) Respiratory: Chest Non Tender, Lungs Clear, Normal Breath Sounds, No Accessory Muscle Use, No Respiratory Distress Cardiovascular: Regular Rate, Rhythm, No Edema, Normal Peripheral Pulses, Extra Beats (PVC's noted per bedisde monitor) Peripheral Pulses: 2+ Dorsalis Pedis (R), 2+ Left Dors-Pedis (L); 0 Radial Pulses (R) (recent radial artery occlusion); 2+ Radial Pulses (L) Gastrointestinal: normal bowel sounds, non tender, soft; No distended, No guarding, No rebound Extremity: Normal Capillary Refill, Normal Inspection, Non Tender, No Calf Tenderness, No Pedal Edema Neurologic/Psychiatric: Alert, Oriented x3, No Motor/Sensory Deficits, Normal Mood/Affect Skin: Normal Color, Warm/Dry Lymphatic: No Adenopathy Results Lab Microbiology 06/05/21 Blood Culture - Preliminary, Resulted No growth 06/05/21 Urine Culture - Final, Complete Escherichia coli Assessment/Plan Assessment/Plan Assessment/Plan Small bowel obstruction-Resolved Nausea, vomiting-Resolved generalized abdominal pain-Resolved UTI Elevated troponin Upper GI bleeding-Improved Leukocytosis-Improved Anemia-Stable Recent radial artery occlusion right side Anticoagulated-Held Small bowel follow through study 06-06 -Normal small bowel follow through -No small bowel obstruction Patient without complaints of nausea, vomiting, abdominal pain, tolerating po intake well, can likely discharge to home soon Eliquis and ASA dc'd per cards, not necessary Advance diet to general diet today continue antibiotics for UTI continue conservative management. Clinical Quality Measures DVT/VTE Risk/Contraindication: Contraindications-Pharm: Other *list below* Other: PT HAS GI BLEED,C ANNOT BE ON ANTICOAG MILLER,DARRELL D DO 06/08/21 1038: Subjective Subjective/Events-last exam Tolerating advancement of diet. + bowel function. No abdominal pain. Reports preadmission was having bright red blood per rectum. Denies n/v fever sweats chills shortness of breath or chest pain. Objective Exam General Appearance: No Apparent Distress, WD/WN HEENT: PERRL/EOMI, Normal ENT Inspection Neck: Normal Inspection, Non Tender Respiratory: Chest Non Tender, No Accessory Muscle Use, No Respiratory Distress Cardiovascular: Regular Rate, Rhythm, No JVD Gastrointestinal: non tender, soft Extremity: Normal Inspection, Non Tender, No Calf Tenderness Neurologic/Psychiatric: Alert, Oriented x3, Normal Mood/Affect Skin: Normal Color, Warm/Dry Lymphatic: No Adenopathy Assessment/Plan Assessment/Plan Assessment/Plan Small bowel obstruction-Resolved Nausea, vomiting-Resolved generalized abdominal pain-Resolved UTI Elevated troponin Upper GI bleeding-Improved Leukocytosis-Improved Anemia-Stable Recent radial artery occlusion right side Anticoagulated-Held Recent bright red blood per rectum. Small bowel follow through study 2-23 -Normal small bowel follow through -No small bowel obstruction Patient without complaints of nausea, vomiting, abdominal pain, tolerating po intake well, can likely discharge to home soon Eliquis and ASA dc'd per cards, not necessary Advance diet to general diet today continue antibiotics for UTI continue conservative management. Outpatient egd/colonoscopy Supervisory-Addendum Brief Verification & Attestation Participated in pt care: history, MDM, physical Personally performed: exam, history, MDM, supervision of care Care discussed with: Medical Student Procedures: n/a Results interpretation: Verified all documentation Verification and Attestation of Medical Student E/M Service A medical student performed and documented this service in my presence. I reviewed and verified all information documented by the medical student and made modifications to such information, when appropriate. I personally performed the physical exam and medical decision making. Darrell Miller, Jun 08, 2021,10:38 BONG DOBBS MED STUDENT Jun 08, 2021 07:54 DARRELL MILLER DO Jun 08, 2021 10:38
[2021-06-08 08:22] VITALS: BP 137/61
[2021-06-08] MEDS: PANTOPRAZOLE 40 MG (PROTONIX) VIAL IV SCH (08:33)
[2021-06-08] MEDS: NIFEdipine ER 30 MG (PROCARDIA XL) TAB PO SCH (08:33)
[2021-06-08] MEDS: amLODIPine 10 MG (NORVASC) TAB PO SCH (08:33)
--- NOTE | 2021-06-08 09:29 | Physical Therapy Daily Note ---
PT Daily Note-Current Subjective Patient presents laying in bed and agrees to get up with physical therapy. Mental Status Patient Orientation: Person, Place, Time, Situation Transfers SCALE: Activities may be completed with or without assistive devices. 5-Ktndhpoliy-uuhkbho completes the activity by him/herself with no assistance from a helper. 5-Set-up or Clean-up Assistance-helper sets up or cleans up; patient completes activity. [place] assists only prior to or following the activity. 4-Supervision or Touching Assistance-helper provides verbal cues and/or touching/steadying and/or contact guard assistance as patient completes activity. Assistance may be provided throughout the activity or intermittently. 3-Partial/Moderate Assistance-helper does LESS THAN HALF the effort. [place] lifts, holds or supports trunk or limbs, but provides less than half the effort. 2-Substantial/Maximal Assistance-helper does MORE THAN HALF the effort. [place] lifts or holds trunk or limbs and provides more than half the effort. 5-Vcvehxfqw-mtpbmt does ALL the effort. Patient does none of the effort to complete the activity. Or, the assistance of 2 or more helpers is required for the patient to complete the activity. If activity was not attempted, code reason: 7-Patient Refused. 9-Not Applicable-not attempted and the patient did not perform the activity before the current illness, exacerbation or injury. 10-Not Attempted due to Environmental Limitations-(lack of equipment, weather restraints, etc.). 88-Not Attempted due to Medical Conditions or Safety Concerns. Lying to Sitting/Side of Bed(Q: 6 Sit to Stand (QC): 6 Toilet Transfer (QC): 6 Gait Training Does the Patient Walk?: Yes Distance: 50' Walk 10 feet (QC): 6 Walk 50 ft with 2 Turns(QC): 6 Gait Assistive Device: FWW Patient ambulated with FWW independently within her room to the bathroom. Assessment Patient performed bed mobility, transfers and ambulation. Upon standing patient reported needing to use the bathroom. Patient ambulated to the bathroom then out but reported she had to go again. Nursing staff was notified that patient was on the toilet still. Patient is being d/c from therapy services due to independence with transfers and ambulation. PT Short Term Goals Short Term Goals Time Frame: Jun 08, 2021 PT [place] Cleaner Goals [place] Goals PT [place] Cleaner Goals Time Frame: Jun 22, 2021 Roll Left & Right (QC): 6 Sit to Lying (QC): 6 Lying-Sitting on Side/Bed(QC): 6 Sit to Stand (QC): 6 Chair/Otw-he-Luemt Xfer(QC): 6 Toilet Transfer (QC): 6 Does the Patient Walk: Yes Walk 10 feet (QC): 6 Walk 50ft with 2 Turns (QC): 6 Walk 150 ft (QC): 6 1 Step (curb) (QC): 4 4 Steps (QC): 4 12 Steps (QC): 4 PT Plan Treatment/Plan Treatment Plan: Discontinue PT, goals met Treatment Plan: Bed Mobility, Education, Functional Activity Claudine, Functional Strength, Group Therapy, Gait, Safety, Therapeutic Exercise, Transfers Treatment Duration: Jul 06, 2021 Frequency: 6 times per week Estimated Hrs Per Day: .25 hour per day Patient and/or Family Agrees t: Yes Time/GCodes Time In: 843 Time Out: 858 Total Billed Treatment Time: 15 Total Billed Treatment 1 Visit FA 15 min LORI BERNAL PT Jun 08, 2021 09:29
[2021-06-08] MEDS ORDERED: IBAN150T21 PO (10:07)
[2021-06-08] MEDS ORDERED: NITR100C10 PO (10:07)
[2021-06-08] MEDS ORDERED: AMLO-251 PO (10:07)
[2021-06-08] MEDS ORDERED: PANT40TA52 PO (10:07)
--- NOTE | 2021-06-08 10:11 | Discharge Inst-Simple/Standard ---
Discharge Inst-Standard Reconcile Patient Problems Problems Reviewed?: Yes Discharge Medications New, Converted or Re-Newed RX: Transmitted to Pharmacy Patient Instructions/Follow Up Plan of Care/Instructions/FU: 1 [facility] [address] PATEL [address] ASHTON YOU WILL BE TAKING YOUR NITROFURANTOIN 100MG TWICE DAILY X 10 DAYS THEN GO BACK TO [facility]LY Activity as Tolerated: Yes Goal: INCREASE STRENGTH AT HOME WITH HOME EXERCISES, WALKING AROUND THE HOUSE 2 TIMES EVERY 3 HOURS WHILE AWAKE TO HELP BUILD STRENGTH - LET THE [facility] KNOW IF YOU WOULD LIKE TO CONSIDER OUTPATIENT PHYSICAL THERAPY FOR STRENGTHENING WHEN YOU GO TO YOUR APPT IN A WEEK Discharge Diet: Other Diet (BLAND DIET X 1 WEEK THEN ADVANCE TOLERATED) Health Concerns: PARTIAL SMALL BOWEL OBSTRUCTION UPPER GI BLEEDING ANEMIA URINARY TRACT INFECTION - ECOLI HYPERTENSION - CHRONIC HYPERLIPIDEMIA - CHRONIC PREMATURE 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 40 Mg PO BID Ibandronate Sodium 150 Mg Tablet 150 Mg PO MONTHLY - HOLD THE IBANDRONATE UNTIL AUGUST 2021 TO GIVE TIME FOR THE STOMACH TO HEAL hold x 2 months - restart in AUGUST 2021 Reported Calcium + Vitamin D Tablet (Calcium Carbonate/Vitamin D3) 1 Each Tablet 2 Each PO DAILY Ondansetron HCl 4 Mg Tablet 4 Mg PO Q8H PRN Coq-10 (Ubidecarenone) 100 Mg Capsule 100 Mg PO 1200 Vitamin D3 (Cholecalciferol (Vitamin D3)) 25 Mcg Tablet 50 Mcg PO DAILY Telmisartan 80 Mg Tablet 80 Mg PO 1800 Multivitamin 1 Each Tablet 1 Each PO 1200 [[place] ] 1 Ea PO UD Fish Oil 1,000 mg Softgel ([place]-3/Dha/Epa/Fish Oil) 1 Each Capsule 2 Each PO DAILY Cranberry (Cranberry Extract) 500 Mg Tablet 500 Mg PO BID B-12 (Cyanocobalamin (Vitamin B-12)) 3,000 Mcg/1 Ml Drops 3,000 Mcg SL DAILY Gabapentin 100 Mg Capsule 100 Mg PO 1800 Flovent Hfa 110 mcg (Fluticasone Propionate) 1 Ea Aero 2 Puff IH DAILY Fexofenadine HCl 180 Mg Tablet 180 Mg PO DAILY Atorvastatin Calcium 20 Mg Tablet 20 Mg PO HS My orders: Orders - MARCUS ALMANZA MD Patient Visit (06/07/21 ) Pt Eval Moderate Complexity (06/07/21 ) Gait Training, Ea 15 Min (06/07/21 ) Attending Discharge Inpt/Inobs (06/08/21 10:04) MARCUS ALMANZA MD Jun 08, 2021 10:11
--- NOTE | 2021-06-08 10:29 | Discharge Summary ---
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 SHE PRESENTED TO THE HOSPITAL WITH SEVERE ABDOMINAL PAIN AND WAS FOUND TO HAVE A SMALL BOWEL OBSTRUCTION BY CT SCAN. THE PATIENT REPORTS ABDOMINAL PAIN STARTING ON THE EVENING 06/04/21 AROUND MIDNIGHT, IT PROGRESSED TO THE POINT THAT SHE HAD UNCONTROLLED EMESIS AND WAS IN SO MUCH PAIN SHE FINALLY AGREED TO BE EVALUATED IN THE ER WHERE THE SMALL BOWEL OBSTRUCTION WAS IDENTIFIED. A SURGICAL CONSULT WAS PLACED, AN NG TUBE WAS PLACED, AND OCCULT ON THE EMESIS SHOWED BLOOD. PT WAS ADMITTED TO THE CARDIAC STEPDOWN UNIT. Discharge Summary Consultations CARDIOLOGY - DR. PATEL SURGERY - DR. ASHTON Discharge Physical Examination Allergies: Coded Allergies: Cephalexin Monohydrate (Unverified Allergy, Severe, SWELLING, 11/18/17) Penicillins (Unverified Allergy, Severe, EDEMA, 11/18/17) codeine (Unverified Allergy, Severe, SWELLING, 11/18/17) erythromycin base (Unverified Allergy, Severe, SWELLING, 11/18/17) tiotropium bromide (Unverified Allergy, Severe, SWELLING, 11/18/17) tramadol (Verified Allergy, Mild, RASH, 11/18/17) azithromycin (Unverified Allergy, Unknown, 11/18/17) Sulfa (Sulfonamide Antibiotics) (Unverified Adverse Reaction, Mild, TIRED, 11/18/17) Vitals & I&Os Vital Signs Date Time Temp Pulse Resp B/P (MAP) Pulse Ox O2 Delivery O2 Flow Rate FiO2 06/08/21 08:22 36.0 62 16 137/61 (86) 94 Room Air General Appearance: Alert, Oriented X3, Cooperative, No Acute Distress HEENT: Atraumatic, PERRLA, Mucous Memb Moist/[place] Respiratory: Clear to Auscultation, Normal Air Movement Cardiovascular: Regular Rate Abdominal: Normal Bowel Sounds, Soft, No Tenderness Extremities: No Clubbing, No Cyanosis Neuro: Normal Speech, Cranial Nerves 3-12 NL Psych/Mental Status: Mental Status NL, Mood NL Hospital Course Was the Problem List Reviewed?: Yes PARTIAL SMALL BOWEL OBSTRUCTION UPPER GI BLEEDING ANEMIA URINARY TRACT INFECTION - ECOLI HYPERTENSION - CHRONIC HYPERLIPIDEMIA - 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 - PT HAD SMALL BOWEL FOLLOW THRU WHICH WAS RAPID AND SHOWED COMPLETE RESOLUTION OF THE OBSTRUCTION, AFTER DISCUSSION WITH SURGEON - DECISION MADE TO PULL THE NG TUBE, FEED PT CLEAR LIQUIDS AND MONITOR SYMPTOMS. - PT'S BOWEL OBSTRUCTION CLEARED - PT TOLERATED DIET WITHOUT INCIDENT, FEELING GOOD - WILL HAVE OUTPATIENT WORK - UP WITH DR. ASHTON - PT ADMITTED TO BRIGHT RED BLOOD PER RECTUM ABOUT 2 DAYS PRIOR TO HER BOWEL OBSTRUCTION - WILL LOOK INTO UPPER AND LOWER GI SCOPES ANEMIA - STABLE HGB URINARY TRACT INFECTION - ECOLI - PT ON MEROPENEM - SHE HAS AN EXTREME NUMBER OF DRUG ALLERGIES - ALMOST EVERY CLASS OF ANTIBIOTIC HAS AN ALLERGY LISTED, PT WAS THEREFORE STARTED ON MEROPENEM THROUGH THE ER. - CULTURE REPORT SHOWED ECOLI - SENSITIVE TO NITROFURANTOIN - WITH HER MASSIVE NUMBER OF ALLERGIES -WILL SEND OUT NITROFURANTOIN 100MG BID X 10 DAYS THEN RESUME HER USUAL 100MG DAILY THEREAFTER. HYPERTENSION - CHRONIC - DEFER TO CARDIOLOGY HYPERLIPIDEMIA - CHRONIC - RESTART HOME REGIMEN ON DC PREMATURE VENTRICULAR CONTRACTIONS TYPE II MYOCARDIAL INFARCTION - DUE TO SHOCK FROM BLOOD LOSS AND THE STRESS OF EXCESSIVE EMESIS WELL URINARY TRACT INFECTION, CONSERVATIVE MANAGEMENT NAUSEA AND EMESIS -RESOLVED LEUKOCYTOSIS - IMPROVED - SHOULD IMPROVE WITH TREATMENT OF UTI AND SMALL BOWEL OBSTRUCTION. DVT PROPHYLAXIS WITH SCD'S SINCE PT CANNOT TAKE ANTICOAGULATION DUE TO GI BLEED GI PROPHYLAXIS WITH PPI THERAPY DC TO HOME TODAY Discharge Condition at discharge IMPROVED Instructions to patient/family Please see electronic discharge instructions given to patient. Discharge Medications Reviewed and agree with Discharge Medication list on patient's Discharge Instruction sheet Clinical Quality Measures DVT/VTE Risk/Contraindication: Contraindications-Pharm: Other *list below* Other: PT HAS GI BLEED,C ANNOT BE ON ANTICOAG MARCUS ALMANZA MD Jun 08, 2021 10:29
--- NOTE | 2021-06-08 11:44 | Cardiology Progress Note ---
Subjective Date Seen by Provider: Jun 08, 2021 Time Seen by Provider: 11:43 Subjective/Events-last exam Patient was seen at bedside, sitting comfortably, feeling better. No new c omplaint Review of Systems General: No Chills, No Night Sweats, No Fatigue, No Malaise, No Appetite, No Other HEENT: No Head Aches, No Visual Changes, No Eye Pain, No Ear Pain, No Dysphasia, No Sinus Congestion, No Post Nasal Drip, No Sore Throat, No Other Pulmonary: No Dyspnea, No Cough, No Pleuritic Chest Pain, No Other Cardiovascular: No: Chest Pain, Palpitations, Orthopnea, Paroxysmal Noc. Dyspnea, Edema, Lt Headedness, Other Focused Exam Lactate Level 06/05/21 18:48: Lactic Acid Level 1.48 Objective-Cardiology Exam Last Set of Vital Signs Vital Signs 06/08/21 08:22 Temp 36.0 Pulse 62 Resp 16 B/P (MAP) 137/61 (86) Pulse Ox 94 O2 Delivery Room Air I&O Intake and Output 06/08/21 00:00 Intake Total 4505 ml Output Total 2900 ml Balance 1605 ml Intake Oral 2730 ml IV Total 1775 ml Output Urine Total 2900 ml # Bowel Movements 2 General: Alert, Oriented X3, Cooperative, No Acute Distress HEENT: Atraumatic, PERRLA, Mucous Memb Moist/[place] Neck: Supple, No JVD, No Thyromegaly Lungs: Clear to Auscultation, Normal Air Movement Heart: Regular Rate, Normal S1, Normal S2 Abdomen: Normal Bowel Sounds, Soft, No Tenderness Extremities: No Clubbing, No Cyanosis Skin: No Rashes, No Breakdown, No Significant Lesion Neuro: Normal Speech, Cranial Nerves 3-12 NL Psych/Mental Status: Mental Status NL, Mood NL A/P-Cardiology Admission Diagnosis SBO GI bleed HTN Radial artery occlusion Assessment/Plan GI bleed, probably upper GI bleed as a cause for the nausea and the coffee-jj und emesis. H&H has mild drop, continue to monitor, managed by medical and surgical team. Aspirin and Eliquis were discontinued. UTI, received antibiotic and better Abdominal discomfort, nausea and vomiting, reporting improvement. Managed by medical team. Mildly elevated troponin, likely type II UT. Underwent recent LHC revealing nonobstructive disease. Chest discomfort, reporting improvement. Cardiac catheterization was carried out on May 09, 2021 showing mild disease nonobstructive disease. Continue to monitor. Status post occlusion of the right radial artery after angiogram with radial access- Patient had significant radial and brachial artery spasm noted during the procedure responder to nitroglycerin and verapamil. About a week after the procedure she developed numbness and pain in R arm, ultrasound showed occlusion of the radial artery. Ultrasound was repeated on May 29, 2021, still having occlusion of the radial artery, patient is asymptomatic. Discontinue aspirin and Eliquis 2D echo was done on March 15, 2021 showing normal LV size with mild LVH, ejection fraction 70 to 75%, grade 1 diastolic dysfunction, left atrium 5.1 cm, mild MR, PA pressure 50 mmHg. Continue to monitor Sinus node dysfunction, episodes of bradycardia, noted on the Holter monitor to monitor showing heart rate in the 40s. Metoprolol was discontinued. Still having occasional episodes of lightheadedness. Her energy level is slightly better, no syncope was reported. We will continue monitoring closely and consider placement of pacemaker if patient becomes symptomatic. Recurrent palpitation, Holter monitor showed sinus rhythm with episodes of sinus bradycardia with a heart rate 40 bpm at 11:30 PM. Frequent PVCs and ventricular bigeminy and occasional short PAT's. Having bradycardia and generalized fatigue. Feeling slightly better after starting Toprol. We will continue monitoring Generalized fatigue, episode of bradycardia, questionable sleep apnea, will evaluate sleep study Labile hypertension, restart telmisartan 80 mg daily, I will start Norvasc 10 mg daily. Monitor blood pressure History of rheumatic fever as a child, systolic murmur on physical examination, mild mitral regurgitation per echo. Normal rheumatic heart disease. Hyperlipidemia, maintained on Lipitor 20 mg daily, monitor lipids Gastroesophageal reflux disease, maintained on pantoprazole. Mild bilateral carotid stenosis, ultrasound was done February 2021, continue to monitor Okay for discharge from cardiology standpoint and follow-up as an outpatient. EKATERINA PATEL MD Jun 08, 2021 11:44
[2021-06-08 15:45] VITALS: BP 146/64
[2021-06-08 17:10] VITALS: BP 146/64
== END 2021-06-08 17:10 | disposition home or self-care (01) | DRG 377 ==
LOC: EDUNIT# 18:34 → ER 18:36 → CSD 20:10 → 4TH 06-07 13:37 → CSD 06-07 13:39
PROVIDERS: ADMIT Family Medicine; ATTEND Family Medicine
DX: K92.2 Gastrointestinal hemorrhage, unspecified (principal); I21.A1 Myocardial infarction type 2; K56.600 Partial intestinal obstruction, unspecified as to cause; N39.0 Urinary tract infection, site not specified; B96.20 Unspecified Escherichia coli [E. coli] as the cause of diseases classified elsewhere; I10 Essential (primary) hypertension; I49.3 Ventricular premature depolarization; R11.2 Nausea with vomiting, unspecified; D72.829 Elevated white blood cell count, unspecified; E86.0 Dehydration; E87.6 Hypokalemia; I25.10 Atherosclerotic heart disease of native coronary artery without angina pectoris; I73.9 Peripheral vascular disease, unspecified; E78.00 Pure hypercholesterolemia, unspecified; N31.9 Neuromuscular dysfunction of bladder, unspecified; K21.9 Gastro-esophageal reflux disease without esophagitis; M81.0 Age-related osteoporosis without current pathological fracture; Z79.82 Long term (current) use of aspirin; Z79.899 Other long term (current) drug therapy; Z20.822 Contact with and (suspected) exposure to COVID-19; D64.9 Anemia, unspecified; I65.23 Occlusion and stenosis of bilateral carotid arteries; I70.8 Atherosclerosis of other arteries; I49.5 Sick sinus syndrome; R53.83 Other fatigue
CPT/HCPCS: 36415; 51702; 71045; 71250; 74176; 74250; 80048; 80053; 81000; 82150; 82271; 82274; 83605; 83690; 83735; 84145; 84484; 85007; 85025; 85027; 85610; 85652; 85730; 86141; 87040; 87077; 87088; 87186; 87636; 93005; 93041; 96361; 96374; 96375

== ENCOUNTER → 2021-07-02 | Outpatient (CLI) | payer MEDICARE ==
[~2021-07-02] MED LIST changes: +AMLO-251 PO; +APIX5TAB PO; +ASPI-1238 PO; +BARIUM for suspension 96% w/w (Vanilla Silq Medium Density) PO ONE; +BARIUM for suspension 98% w/w (Vanilla Silq High Density) PO ONE; +CALC-140 PO; +NIFE30TA89 PO; +NITR100C10 PO; +ONDA-105 PO
--- NOTE | 2021-07-02 12:12 | Diagnostic Imaging Report ---
INDICATION: Dysphagia and upper GI bleed. Patient ingested thin and thick barium and imaging of the esophagus was performed in multiple obliquities. 0.12 minutes of fluoroscopic time was utilized. Preliminary radiograph over the chest is unremarkable. The esophagus has a fairly smooth contour. No mass or stricture is seen. There are occasional tertiary contractions present. There is a very small sliding-type hiatal hernia. No gastroesophageal reflux was identified. There is normal emptying into the stomach. Stomach appears unremarkable. IMPRESSION: Generalized esophageal dysmotility as well as small sliding-type hiatal hernia. The study is otherwise unremarkable. Dictated by: Dictated on workstation # [id number]
== END ==
LOC: RAD 11:00
PROVIDERS: ATTEND Surgery
DX: K44.9 Diaphragmatic hernia without obstruction or gangrene (principal)
CPT/HCPCS: 74220

== ENCOUNTER → 2021-07-03 | Outpatient (CLI) | payer MEDICARE ==
[~2021-07-03] MED LIST changes: -BARIUM for suspension 96% w/w (Vanilla Silq Medium Density) PO ONE; -BARIUM for suspension 98% w/w (Vanilla Silq High Density) PO ONE
--- NOTE | 2021-07-03 10:33 | Diagnostic Imaging Report ---
PROCEDURE: US Gallbladder. TECHNIQUE: Multiple real-time grayscale images were obtained over the right upper quadrant in various projections. INDICATION: Abdominal pain. FINDINGS: Liver appears normal. Liver measures 13.7 cm. The bile ducts are not dilated. The common duct measures 4 mm. Gallbladder shows no gallstones or wall thickening. No pericholecystic fluid. Pancreas is obscured by bowel gas. The aorta measures 1.6 cm. The portal vein and vena cava appear normal with Doppler sampling. Right kidney measures 8 x 4 x 4.7 cm and appears normal. There is no ascites. Negative Pro sign. IMPRESSION: Normal right upper quadrant ultrasound. Dictated by: Dictated on workstation # [id number]
== END ==
LOC: RAD 09:15
PROVIDERS: ATTEND Nurse Practitioner Family
DX: R10.9 Unspecified abdominal pain (principal)
CPT/HCPCS: 76705

== ENCOUNTER 2021-07-05 06:32 | Outpatient (RCR) | payer MEDICARE ==
[~2021-07-05] VITALS: Ht 167.6 cm; Wt 77.7 kg
[~2021-07-05 06:32] MED LIST changes: +FEXO-249 PO; -FEXO-46 PO
== END 2021-07-05 13:10 | disposition home or self-care (01) ==
LOC: PREOP 06:32
PROVIDERS: ATTEND Surgery
DX: Z01.818 Encounter for other preprocedural examination (principal)

== ENCOUNTER 2021-07-09 10:26 | Outpatient (RCR) | payer MEDICARE | END 2021-07-12 | disposition home or self-care (01) | PROVIDERS: ATTEND Family Medicine | DX: N81.10 Cystocele, unspecified (principal); N81.6 Rectocele; I10 Essential (primary) hypertension ==

== ENCOUNTER 2021-07-17 08:48 | Day surgery (SDC) | payer MEDICARE ==
[~2021-07-17] VITALS: Ht 170.2 cm; Wt 77.7 kg
[2021-07-17] MEDS ORDERED: LACTATED RINGERS 1,000 ML IV ONE (08:53)
[2021-07-17] MEDS ORDERED: LACTATED RINGERS 1,000 ML IV STA (08:59)
[2021-07-17] MEDS ORDERED: HURRICAINE EXT TUBE (BENZOCAINE) XX PRN (09:00)
--- NOTE | 2021-07-17 09:11 | Progress Note-Pre Operative ---
Pre-Operative Progress Note H&P Reviewed The H&P was reviewed, patient examined and no changes noted. Date Seen by Provider: Jul 17, 2021 Time Seen by Provider: 09:11 Date H&P Reviewed: Jul 17, 2021 Time H&P Reviewed: 09:11 Pre-Operative Diagnosis: iron def anemia, hx hematemesis, dysphagia, rectal pain DARRELL ASHTON DO Jul 17, 2021 09:11
[2021-07-17 09:25] VITALS: BP 139/59
[2021-07-17] MEDS ORDERED: PROPOFOL INJECTION 50 ML IV ONE (10:27)
[2021-07-17 11:20] VITALS: BP 86/54
--- NOTE | 2021-07-17 11:20 | Progress Note-Post Operative ---
Post-Operative Progess Note Surgeon (s)/Larder Cook (s) Surgeon DARRELL ASHTON DO Larder Cook: na Pre-Operative Diagnosis iron def anemia, hx hematemesis, dysphagia, rectal pain Post-Operative Diagnosis Gastritis, hiatal hernia, diverticulosis, colon polyps x2 Procedure & Operative Findings Date of Procedure 07/17/21 Procedure Performed/Findings EGD with biopsies x3. Colonoscopy with hot biopsy x2. 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 Sigmoid polyp x2. DARRELL ASHTON DO Jul 17, 2021 11:20
--- NOTE | 2021-07-17 11:21 | Anesthesia-General Post-Op ---
MAC Patient Condition Mental Status/LOC: Same as Preop Cardiovascular: Satisfactory Nausea/Vomiting: Absent Respiratory: Satisfactory Pain: Controlled Complications: Absent Post Op Complications Complications None Follow Up Care/Instructions Patient Instructions None needed. Anesthesiology Discharge Order Discharge Order Patient is doing well, no complaints, stable vital signs, no apparent adverse anesthesia problems. No complications reported per nursing. RANJAN BUTCHER CRNA Jul 17, 2021 11:21
--- NOTE | 2021-07-17 11:23 | Discharge Inst-Simple/Standard ---
Discharge Inst-Standard Patient Instructions/Follow Up Plan of Care/Instructions/FU: 2 weeks Angela Activity as Tolerated: Yes Discharge Diet: Regular Diet (high fiber) DARRELL ASHTON DO Jul 17, 2021 11:22
[2021-07-17 11:40] VITALS: BP 117/60
--- NOTE | 2021-07-17 15:37 | OPERATIVE REPORT ---
DATE OF SERVICE: 07/17/2021 PREOPERATIVE DIAGNOSES: Iron deficiency anemia, history of hematemesis, dysphagia, and rectal pain. POSTOPERATIVE DIAGNOSES: Gastritis, hiatal hernia, diverticulosis, and colon polyps x2. PROCEDUREs PERFORMED: EGD with biopsies x3, colonoscopy with hot biopsy polypectomy x2. SURGEON: Darrell Miller DO ANESTHESIA: Per PLANNER CHIEF. ESTIMATED BLOOD LOSS: None. COMPLICATIONS: None. SPECIMENS: Antrum, body, GE junction and sigmoid colon polyps x2. INDICATIONS FOR PROCEDURE: The patient is an 80-year-old female with iron deficiency anemia. She has history of hematemesis, dysphagia and rectal pain. She understands risks and benefits of procedure and wishes to proceed. Consent was signed in the chart. DESCRIPTION OF PROCEDURE: The patient was taken to the endoscopy suite and placed in the left lateral recumbent position. A timeout was performed. Scope was inserted in mouth, down the esophagus, stomach and into the duodenum without difficulty. There were no polyps, masses or ulcerations of the duodenum. Scope was slowly retracted back into the stomach, where it was further insufflated. Erythematous changes with appearance of gastritis present. Biopsy of the antrum and body were obtained. Scope was retroflexed noting a small hiatal hernia, no other pathology. Scope was returned to its normal position, slowly withdrawn to distal esophagus. Biopsy of the GE junction was obtained. Scope was slowly retracted back until completely removed. Digital rectal exam was performed. No palpable polyps, masses or ulcerations. Scope was inserted in the rectum and advanced all the way to cecum with minimal difficulty. Prep was adequate. Scope was then slowly retracted back, also using a GI Genius. No polyps, masses or ulcerations within the cecum, ascending, transverse and descending colon. In the sigmoid colon, two small erythematous appearing polyps were present. Hot biopsy polypectomies were performed. Throughout the majority of the colon, moderate amount of diverticulosis was present. Once in the rectum, scope was retroflexed noting some internal hemorrhoids. No other pathology. Scope was returned to its normal position, slowly withdrawn until completely removed. The patient tolerated the procedure well without any complications. She was taken to recovery room in stable condition. RECOMMENDATIONS: The patient will need a repeat colonoscopy on as needed basis. We will await biopsy results. Continue on current medications. The patient will follow up in the office in two weeks. Job ID: [id number] DocumentID: [id number] Dictated Date: 07/17/2021 11:25:30 Finance Professional Date: 07/17/2021 15:36:08 Dictated By: DARRELL MILLER DO
== END 2021-07-17 11:52 | disposition home or self-care (01) ==
LOC: ENDO 08:48
PROVIDERS: ATTEND Surgery
DX: K29.50 Unspecified chronic gastritis without bleeding (principal); K44.9 Diaphragmatic hernia without obstruction or gangrene; K20.90 Esophagitis, unspecified without bleeding; K63.5 Polyp of colon; K64.8 Other hemorrhoids; K62.89 Other specified diseases of anus and rectum; K63.89 Other specified diseases of intestine; K57.30 Diverticulosis of large intestine without perforation or abscess without bleeding; D50.9 Iron deficiency anemia, unspecified

== ENCOUNTER 2021-08-03 14:27 | Outpatient (RCR) | payer MEDICARE ==
[~2021-08-03 14:27] MED LIST changes: -FEXO-249 PO; +NF-ALLE180 PO
== END 2021-08-11 | disposition home or self-care (01) ==
PROVIDERS: ATTEND Family Medicine
DX: N81.10 Cystocele, unspecified (principal); N81.6 Rectocele; I10 Essential (primary) hypertension

== ENCOUNTER 2021-08-29 10:41 | Outpatient (RCR) | payer MEDICARE | END 2021-09-11 | disposition home or self-care (01) | PROVIDERS: ATTEND Family Medicine | DX: N81.10 Cystocele, unspecified (principal); N81.6 Rectocele; I10 Essential (primary) hypertension ==

== ENCOUNTER → 2021-09-11 | Outpatient (CLI) | payer MEDICARE | LOC: LAB 10:34 | PROVIDERS: ATTEND Surgery | DX: A04.8 Other specified bacterial intestinal infections (principal) ==

== ENCOUNTER 2021-09-21 12:58 | Outpatient (RCR) | payer MEDICARE ==
[~2021-09-21 12:58] MED LIST changes: -CRAN500T3 PO; +CRAN500T4 PO
== END 2021-09-21 16:21 | disposition home or self-care (01) ==
PROVIDERS: ATTEND Family Medicine
DX: N81.10 Cystocele, unspecified (principal); N81.6 Rectocele; I10 Essential (primary) hypertension

== ENCOUNTER → 2021-11-08 | Outpatient (CLI) | payer MEDICARE ==
--- NOTE | 2021-11-08 17:17 | Diagnostic Imaging Report ---
3-D Bilateral Screening Mammogram COMPARISON: 11/07/2020. 11/03/2019 and 06/29/2018. The current study was also evaluated with a Computed Aided Detection (CAD) system. At this time there are no current complaints. The fibroglandular tissue in both breasts is heterogeneously dense. This does limit the sensitivity of this exam. When compared to the previous study there does not appear to have been any significant change. There is no primary or secondary sign of malignancy noted. IMPRESSION: There is no evidence for malignancy. BI-RADS CATEGORY: 1 NEGATIVE ACR BI-RADS Category 1: Negative. Result letter will be mailed to the patient. Note: At least 10% of breast cancer is not imaged by mammography. Dictated by: Dictated on workstation # [id number]
== END ==
LOC: RAD 10:30
PROVIDERS: ATTEND Nurse Practitioner Family
DX: Z12.31 Encounter for screening mammogram for malignant neoplasm of breast (principal)
CPT/HCPCS: 77063; 77067

== ENCOUNTER → 2022-06-11 | Outpatient (CLI) | payer MEDICARE ==
--- NOTE | 2022-06-11 16:09 | Diagnostic Imaging Report ---
PROCEDURE: US right lower extremity venous. TECHNIQUE: Multiple real-time grayscale images were obtained over the right lower extremity in various projections. Additional spectral analysis and color Doppler duplex images were also obtained. INDICATION: Right calf and posterior thigh pain. FINDINGS: There is no evidence of right lower extremity DVT. Right lower extremity deep venous system shows normal compressibility with normal response to augmentation and Valsalva. No fluid collection or mass is detected. IMPRESSION: No evidence of right lower extremity DVT. Dictated by: Dictated on workstation # [id number]
== END ==
LOC: RAD 13:01
PROVIDERS: ATTEND Family Medicine
DX: M79.661 Pain in right lower leg (principal)

== ENCOUNTER → 2022-11-12 | Outpatient (CLI) | payer MEDICARE ==
[~2022-11-12] MED LIST changes: +NIFE-55 PO; -NIFE30TA89 PO
--- NOTE | 2022-11-12 15:47 | Diagnostic Imaging Report ---
INDICATION: Routine screening. COMPARISON: 11/08/2021 and 11/07/2020. TECHNIQUE: 2D and 3D bilateral screening mammography was performed with CAD. FINDINGS: Scattered fibroglandular densities are identified bilaterally. The parenchymal pattern is stable. No mass or malignant-appearing microcalcifications are seen. The axillae are unremarkable. IMPRESSION: No mammographic features suspicious for malignancy are identified. ACR BI-RADS Category 1: Negative. Result letter will be mailed to the patient. Note: At least 10% of breast cancer is not imaged by mammography. Dictated by: Dictated on workstation # [id number]
== END ==
LOC: RAD 13:41
PROVIDERS: ATTEND Family Medicine
DX: Z12.31 Encounter for screening mammogram for malignant neoplasm of breast (principal)
CPT/HCPCS: 77063; 77067